=== PATIENT | female | born 1935 | race Caucasian/White ===

== ENCOUNTER 2018-01-20 09:00 | Outpatient (RCR) | payer MEDICARE, SELFPAY ==
[2017-12-30 16:08] VITALS: BP 117/49; PULSE 79; RESP 18; TEMP 36.8; BMI 33.8
--- NOTE | 2017-12-30 16:56 | PCM.WC.HP ---
(1) Pressure ulcer of coccygeal region, stage 2 Status: Acute Current Visit: Yes Code(s): L89.152 - Pressure ulcer of sacral region, stage 2 (2) CAD (coronary artery disease) Status: Chronic Current Visit: Yes Qualifiers: Coronary Disease-Associated Artery/Lesion type: [place] artery [place] vs. transplanted heart: [place] heart Code(s): I25.10 - Atherosclerotic heart disease of [place] coronary artery without angina pectoris (3) Lymphedema Status: Chronic Current Visit: No Code(s): I89.0 - Lymphedema, not elsewhere classified (4) Hypothyroidism Status: Chronic Current Visit: No Code(s): E03.9 - Hypothyroidism, unspecified (5) Diabetes mellitus Status: Chronic Current Visit: No Qualifiers: Diabetes mellitus type: type 2 Code(s): E11.9 - Type 2 diabetes mellitus without complications (6) Renal insufficiency Status: Chronic Current Visit: No Code(s): N28.9 - Disorder of kidney and ureter, unspecified (7) Gout Status: Chronic Current Visit: No Code(s): M10.9 - Gout, unspecified (8) Hyperlipidemia Status: Chronic Current Visit: No Code(s): E78.5 - Hyperlipidemia, unspecified (9) GERD (gastroesophageal reflux disease) Status: Chronic Current Visit: No Code(s): K21.9 - Gastro-esophageal reflux disease without esophagitis (10) Obesity (BMI 30.0-34.9) Status: Chronic Current Visit: No Code(s): E66.9 - Obesity, unspecified History of Present Illness Date of Service: 12/30/17 Chief Complaint: Stage II pressure ulceration of the coccygeal region History of Wound: This is an 82-year-old female who was recently hospitalized at [facility], and underwent left intramedullary rodding of a left hip fracture on December 08, 2017. Postoperatively, she developed a pressure ulceration of the coccyx, which was noted on December 15, 2017. The patient is now ambulatory, though requires the use of a walker. She sleeps on a flat mattress at night. Because of her recent surgery on the left hip, she is unable to lay on her left side in the left lateral decubitus position. Past Medical History Past Medical History: Chronic Problems CAD (coronary artery disease) (Chronic) Lymphedema (Chronic) Hypothyroidism (Chronic) Diabetes mellitus (Chronic) Renal insufficiency (Chronic) Gout (Chronic) Hyperlipidemia (Chronic) GERD (gastroesophageal reflux disease) (Chronic) Obesity (BMI 30.0-34.9) (Chronic) Past Medical History: The patient's history is negative for cerebrovascular accident, hypertension, and pulmonary disease. She has a history of coronary artery disease, for which she underwent coronary artery stenting in 2014. Suffers from lymphedema of the lower extremities. She has a history of hypothyroidism, diabetes mellitus, renal insufficiency, gout, hyperlipidemia, and gastroesophageal reflux disease. Surgical History: - - Patient underwent hysterectomy in 1969. Bladder suspension was performed in 1962. Patient is undergone rotator cuff surgery on the right twice. She is undergone lumbar surgery in 1983. She has had bilateral cataract surgery. Right inguinal hernia repair was performed in the past. She underwent left intramedullary rodding on December 08, 2017. Allergies/Adverse Reactions: Allergies cefuroxime [From Ceftin] Allergy (Verified 12/30/17 16:25) Rash codeine Allergy (Verified 12/30/17 16:25) Rash erythromycin base Allergy (Verified 12/30/17 16:25) Rash Penicillins Allergy (Verified 12/30/17 16:25) Rash Home Medications: Ambulatory Orders Medication Instructions Recorded Acetaminophen [Tylenol] 650 mg PO 5X/DAY 12/30/17 Aspirin [Adult Low Dose Aspirin EC] 81 mg PO DAILY 12/30/17 Atorvastatin Calcium [Lipitor] 10 mg PO QHS 12/30/17 Celecoxib [Celebrex] 200 mg PO DAILY PRN PRN 12/30/17 Cholecalciferol (Vitamin D3) 1,000 unit PO BID 12/30/17 [Vitamin D3] Colestipol Tablet [Colestid Tablet] 1 gm PO DAILY 12/30/17 Febuxostat [Uloric] 40 mg PO DAILY 12/30/17 Furosemide [Lasix] 40 mg PO DAILY 12/30/17 Insulin Glargine,Hum.rec.anlog 35 unit SQ DAILY 12/30/17 [Lantus] Insulin Lispro [Humalog Kwikpen] 10 - 15 unit SQ 4X/DAY 12/30/17 Insulin Lispro [Humalog] 40 unit SQ DAILY 12/30/17 Levothyroxine [Synthroid] 112 mcg PO DAILY 12/30/17 Metolazone [Zaroxolyn] 5 mg PO QODAY 12/30/17 Multivitamin/Iron/Folic Acid 1 each PO DAILY 12/30/17 [Centrum Adults Tablet] Nitroglycerin 0.4 mg SL PRN PRN 12/30/17 Oxycodone [Oxyir] 5 mg PO Q6H PRN PRN 12/30/17 Potassium Chloride [Klor-Con 10] 10 meq PO QODAY 12/30/17 Ranitidine [Zantac] 150 mg PO DAILY PRN 12/30/17 Sotalol HCl [Betapace AF (Beta 40 mg PO DAILY 12/30/17 Jim)] - Family History Paternal - - The patient's father at the age of 88 with a history of cerebrovascular accident. Patient's mother at age of 85 with a history of coronary artery disease and dementia. Social History: The patient lives alone. She denies the use of alcohol and tobacco products. She is a . She is a retired teacher. Lives: Alone Smoking Status: Never smoker Tobacco Use: Non-smoker Alcohol: None Drugs: None Review of Systems Constitutional: Denies: Chills, Fever, Weight Change Eyes: Denies: Pain, Vision Change HEENT: Denies: Difficulty Hearing, Difficulty Swallowing, Sinus Congestion Cardiovascular: Denies: Chest Pain, Palpitations Respiratory: Denies: Cough, Shortness of Breath Gastrointestinal: Denies: Diarrhea, Nausea, Vomiting Genitourinary: Denies: Dysuria, Hematuria Endocrine: Denies: Heat/ Cold Intolerance, Polydipsia, Polyuria Hematologic/ Lymphatic: Denies: Easy Bruising, Easy Bleeding - Physical Exam Vital Signs Temp Pulse Resp BP 98.2 F 79 18 117/49 L 12/30/17 16:08 12/30/17 16:08 12/30/17 16:08 12/30/17 16:08 General: Alert, Oriented x3, Cooperative, No apparent distress, Well developed, Well nourished HEENT: Atraumatic, PERRLA, EOMI, Normocephalic Oral: Moist Mucosa, No Gingival or Mucosal Lesions/ Ulcerations Neck: Supple, No JVD, Negative Carotid Bruits, Negative Hepatojugular Reflux, No Nodes, No Nuchal Rigidity, Trachea Midline Lungs: Clear to auscultation, Normal air movement, No rhonchi, No wheeze, No rales Cardiovascular: Regular rate, Regular Rhythm, Normal S1, Normal S2, No murmurs Abdomen: Bowel Sounds Present, Soft, Non Tender, Non-Distended Extremities: No clubbing, No cyanosis, No Calf Tenderness, - - Bilateral lymphedema is noted in the lower extremities. There are no open ulcerations or wounds. Skin: - - Ulceration is noted in the coccygeal region. Dimensions are documented elsewhere. This represents a stage II ulceration. The base of the ulceration is fibrotic. Wound Measurements and Assessment WC - Nurse 1 - General Ulcer Measurement Start: 12/30/17 16:08 Freq: Status: Active Protocol: Activity Type Activity Date Activity User E-Sign Co-Sign Detail Recorded Client Recorded Date Recorded By Document 12/30/17 16:08 [email or web address] 12/30/17 16:20 12/30/17 16:08 Wound Center Nurse 1 [Ulcer Assessment] #1 coccyx -Combined with other wound No -Current Size (cm) - Length 1.9 -Current Size (cm) - Width 0.8 -Current Size (cm) - Depth 0.2 -Total Square Cm 1.52 -Date of Last Picture (Recall this 12/30/17 field) -Photo Taken Yes -Epithelialization Small 1-33% -Tunneling No -Undermining/Tunneling No -Circular Undermining No -Classification - Thickness Full Thickness without Exposed Support Structure -Classification - Pressure Ulcer Stage 2 -Exudate Amt Small (1-33%) -Exudate Type Serosanguineous -Wound Margin Distinct, Outline Attached -Granulation Amt None Present (0 %) -Granulation Quality N/A -Slough/Fibrin Yes -Necrosis Amt Large (67-100%) -Necrotic Tissue Type Adherent Slough -Structure Exposed Fascia Fat Layer Exposed -Texture (Carol-wound Skin Appearance) Friable -Moisture (Carol-wound Skin Appearance No Abnormality ) -Color (Carol-wound Skin Appearance) Erythema -Temperature (Carol-wound Skin No Abnormality Appearance) (Pt Warm) -Tenderness on Palpation (Carol-wound No Skin Appearance) -Ulcer Cleansing Rinsed/ Irrigated with Saline -Foul Odor after Cleansing No -Anesthetic Used 5% Lidocaine Gel [Edema Assessment] -Lower Limb Edema Present No Neurological: Cranial nerves II-XII grossly intact, Neuro grossly intact Psych/Mental Status: Normal Affect, Appropriate, Alert and oriented to time, place, person, mood and affect Debridement Note Laterality: Not Applicable Type of Debridement: Excisional debridement Anesthesia Used: 4% Lidocaine Solution Depth: Down to and including healthy tissue, in the subcutaneous layer Percentage of wound debrided: 100 Instrument Used: 5mm curette Severity: Fat Layer Exposed Amount of bleeding with debridement: Mild Bleeding Controlled with: Compression and gauze Patient tolerated procedure well Assessment/Plan Active Problems Pressure ulcer of coccygeal region, stage 2 (Acute) CAD (coronary artery disease) (Chronic) Assessment: This is an 82-year-old female recently hospitalized for left intramedullary rodding secondary to a traumatic fracture. As result, she has developed a stage II pressure ulceration of the coccygeal region. Her other medical problems are documented above. Plan: Offloading measures are to be implemented. These measures have been discussed with the patient and her daughter, who is at the bedside. We have recommended a low air loss mattress, which may be difficult for the patient, as she is short, and it may preclude her from actually placing herself within her bed. And advised. Enhance nutrition has been recommended. Weekly mechanical debridements are anticipated. We are to initiate local care using collagenase Santyl applied topically on a daily basis. We are to request recent laboratory studies from [facility]. Return in 1 week for reassessment. The patient is not a smoker. Influenza vaccine was not administered today. Patient weighs 179 pounds. She stands 5 feet 1 inches tall. Her BMI is 33.8, which places her in a class II category. Weight loss has been recommended, and she has been advised to collaborate with her primary care physician in this regard.
[2018-01-06 09:05] VITALS: BP 146/62; PULSE 89; RESP 18; TEMP 35.8; BMI 33.8
--- NOTE | 2018-01-06 09:29 | HP.PCM_ITS ---
(1) Pressure ulcer of coccygeal region, stage 2 Status: Acute Current Visit: Yes Code(s): L89.152 - Pressure ulcer of sacral region, stage 2 (2) CAD (coronary artery disease) Status: Chronic Current Visit: Yes Qualifiers: Coronary Disease-Associated Artery/Lesion type: [place] artery [place] vs. transplanted heart: [place] heart Code(s): I25.10 - Atherosclerotic heart disease of [place] coronary artery without angina pectoris (3) Lymphedema Status: Chronic Current Visit: No Code(s): I89.0 - Lymphedema, not elsewhere classified (4) Hypothyroidism Status: Chronic Current Visit: No Code(s): E03.9 - Hypothyroidism, unspecified (5) Diabetes mellitus Status: Chronic Current Visit: No Qualifiers: Diabetes mellitus type: type 2 Code(s): E11.9 - Type 2 diabetes mellitus without complications (6) Renal insufficiency Status: Chronic Current Visit: No Code(s): N28.9 - Disorder of kidney and ureter, unspecified (7) Gout Status: Chronic Current Visit: No Code(s): M10.9 - Gout, unspecified (8) Hyperlipidemia Status: Chronic Current Visit: No Code(s): E78.5 - Hyperlipidemia, unspecified (9) GERD (gastroesophageal reflux disease) Status: Chronic Current Visit: No Code(s): K21.9 - Gastro-esophageal reflux disease without esophagitis (10) Obesity (BMI 30.0-34.9) Status: Chronic Current Visit: No Code(s): E66.9 - Obesity, unspecified History of Present Illness Date of Service: 01/06/18 Chief Complaint: Stage II pressure ulceration of the coccygeal region History of Wound: This is an 82-year-old female who was recently hospitalized at [facility], and underwent left intramedullary rodding of a left hip fracture on December 08, 2017. Postoperatively, she developed a pressure ulceration of the coccyx, which was noted on December 15, 2017. The patient is now ambulatory, though requires the use of a walker. She sleeps on a flat mattress at night. Because of her recent surgery on the left hip, she is unable to lay on her left side in the left lateral decubitus position. Past Medical History Past Medical History: Chronic Problems CAD (coronary artery disease) (Chronic) Lymphedema (Chronic) Hypothyroidism (Chronic) Diabetes mellitus (Chronic) Renal insufficiency (Chronic) Gout (Chronic) Hyperlipidemia (Chronic) GERD (gastroesophageal reflux disease) (Chronic) Obesity (BMI 30.0-34.9) (Chronic) Surgical History: - - Patient underwent hysterectomy in 1969. Bladder suspension was performed in 1962. Patient is undergone rotator cuff surgery on the right twice. She is undergone lumbar surgery in 1983. She has had bilateral cataract surgery. Right inguinal hernia repair was performed in the past. She underwent left intramedullary rodding on December 08, 2017. Allergies/Adverse Reactions: Allergies cefuroxime [From Ceftin] Allergy (Verified 12/30/17 16:25) Rash codeine Allergy (Verified 12/30/17 16:25) Rash erythromycin base Allergy (Verified 12/30/17 16:25) Rash Penicillins Allergy (Verified 12/30/17 16:25) Rash Home Medications: Ambulatory Orders Medication Instructions Recorded Acetaminophen [Tylenol] 650 mg PO 5X/DAY 12/30/17 Aspirin [Adult Low Dose Aspirin EC] 81 mg PO DAILY 12/30/17 Atorvastatin Calcium [Lipitor] 10 mg PO QHS 12/30/17 Celecoxib [Celebrex] 200 mg PO DAILY PRN PRN 12/30/17 Cholecalciferol (Vitamin D3) 1,000 unit PO BID 12/30/17 [Vitamin D3] Colestipol Tablet [Colestid Tablet] 1 gm PO DAILY 12/30/17 Febuxostat [Uloric] 40 mg PO DAILY 12/30/17 Furosemide [Lasix] 40 mg PO DAILY 12/30/17 Insulin Glargine,Hum.rec.anlog 35 unit SQ DAILY 12/30/17 [Lantus] Insulin Lispro [Humalog Kwikpen] 10 - 15 unit SQ 4X/DAY 12/30/17 Insulin Lispro [Humalog] 40 unit SQ DAILY 12/30/17 Levothyroxine [Synthroid] 112 mcg PO DAILY 12/30/17 Metolazone [Zaroxolyn] 5 mg PO QODAY 12/30/17 Multivitamin/Iron/Folic Acid 1 each PO DAILY 12/30/17 [Centrum Adults Tablet] Nitroglycerin 0.4 mg SL PRN PRN 12/30/17 Oxycodone [Oxyir] 5 mg PO Q6H PRN PRN 12/30/17 Potassium Chloride [Klor-Con 10] 10 meq PO QODAY 12/30/17 Ranitidine [Zantac] 150 mg PO DAILY PRN 12/30/17 Sotalol HCl [Betapace AF (Beta 40 mg PO DAILY 12/30/17 Jim)] - Family History Paternal - - The patient's father at the age of 88 with a history of cerebrovascular accident. Patient's mother at age of 85 with a history of coronary artery disease and dementia. Lives: Alone Smoking Status: Never smoker Tobacco Use: Non-smoker Alcohol: None Drugs: None Review of Systems Constitutional: Denies: Chills, Fever, Weight Change Eyes: Denies: Pain, Vision Change HEENT: Denies: Difficulty Hearing, Difficulty Swallowing, Sinus Congestion Cardiovascular: Denies: Chest Pain, Palpitations Respiratory: Denies: Cough, Shortness of Breath Gastrointestinal: Denies: Diarrhea, Nausea, Vomiting Genitourinary: Denies: Dysuria, Hematuria Endocrine: Denies: Heat/ Cold Intolerance, Polydipsia, Polyuria Hematologic/ Lymphatic: Denies: Easy Bruising, Easy Bleeding - Physical Exam Vital Signs Temp Pulse Resp BP 96.4 F L 89 18 146/62 H 01/06/18 09:05 01/06/18 09:05 01/06/18 09:05 01/06/18 09:05 General: Alert, Oriented x3, Cooperative, No apparent distress, Well developed, Well nourished HEENT: Atraumatic, PERRLA, EOMI, Normocephalic Oral: Moist Mucosa Neck: No JVD Lungs: Normal air movement Abdomen: Non-Distended, Obese Extremities: No clubbing, No cyanosis, No Calf Tenderness Skin: No rashes, - - The stage II coccygeal pressure ulceration is little changed. Dimensions are documented elsewhere. The base of the ulceration is fibrous. There is a moderate amount of bioburden. Wound Measurements and Assessment WC - Nurse 1 - General Ulcer Measurement Start: 12/30/17 16:08 Freq: Status: Active Protocol: Activity Type Activity Date Activity User E-Sign Co-Sign Detail Recorded Client Recorded Date Recorded By Document 01/06/18 09:05 CAREN [id number] 01/06/18 09:07 CAREN 01/06/18 09:05 Wound Center Nurse 1 [Ulcer Assessment] #1 coccyx -Combined with other wound No -Current Size (cm) - Length 1.5 -Current Size (cm) - Width 0.5 -Current Size (cm) - Depth 0.2 -Total Square Cm 0.75 -Photo Taken No -Epithelialization None Present -Tunneling No -Undermining/Tunneling No -Circular Undermining No -Exudate Amt Small (1-33%) -Exudate Type Serosanguineous -Wound Margin Flat & Intact -Granulation Amt None Present (0 %) -Slough/Fibrin Yes -Necrosis Amt Large (67-100%) -Necrotic Tissue Type Adherent Slough -Structure Exposed N/A -Texture (Carol-wound Skin Appearance) Assessed -Moisture (Carol-wound Skin Appearance Assessed ) Dry/Scaly -Color (Carol-wound Skin Appearance) Assessed -Temperature (Carol-wound Skin No Abnormality Appearance) (Pt Warm) -Tenderness on Palpation (Carol-wound No Skin Appearance) -Ulcer Cleansing Rinsed/ Irrigated with Saline -Foul Odor after Cleansing No -Anesthetic Used 4% Lidocaine Solution [Edema Assessment] -Lower Limb Edema Present NA WC - Nurse 2 - General Ulcer CM Notes Start: 12/30/17 16:08 Freq: Status: Active Protocol: Activity Type Activity Date Activity User E-Sign Co-Sign Detail Recorded Client Recorded Date Recorded By Document 01/06/18 09:15 MANI [id number] 01/06/18 09:17 MANI 01/06/18 09:15 Wound Center Nurse 2 [Procedure/Treatment] #1 coccyx -Time 09:15 -Correct Patient Yes -Correct Side, Site, Position Yes -Correct Procedure Yes -Procedure Performed Yes -Type of Procedure Debridement -Clinical Debridement Subcutaneous -Post Debridement Size (cm) - Length 1.6 -Post Debridement Size (cm) - Width 0.6 -Post Debridement Size (cm) - Depth 0.2 -Total Square Cm 0.96 -Wound/Ulcer Outcome Not Healed -Ulcer Cleansing Rinsed/ Irrigated with Saline -Foul Odor after Cleansing No -Bioengineered Tissue No -Bleeding Controlled with Pressure -Treatment Response Procedure Tolerated Well [See Physician Procedure note for Specifics] Pain Scale: 0-10 Numeric [Pain] -Is Patient Pain Free? Yes Neurological: Cranial nerves II-XII grossly intact, Neuro grossly intact Psych/Mental Status: Normal Affect, Appropriate, Alert and oriented to time, place, person, mood and affect Debridement Note Post-Debridement Measurements/Treatment WC - Nurse 2 - General Ulcer CM Notes Start: 12/30/17 16:08 Freq: Status: Active Protocol: Activity Type Activity Date Activity User E-Sign Co-Sign Detail Recorded Client Recorded Date Recorded By Document 12/30/17 16:40 [id number] 12/30/17 17:16 Document 01/06/18 09:15 [id number] 01/06/18 09:17 JS 12/30/17 01/06/18 16:40 09:15 Wound Center Nurse 2 #1 coccyx -Time 16:40 09:15 -Correct Patient Yes Yes -Correct Side, Site, Position Yes Yes -Correct Procedure Yes Yes -Procedure Performed Yes Yes -Type of Procedure Debridement Debridement -Clinical Debridement Subcutaneous Subcutaneous -Post Debridement Size (cm) - Length 2.0 1.6 -Post Debridement Size (cm) - Width 2.0 0.6 -Post Debridement Size (cm) - Depth 0.1 0.2 -Total Square Cm 4.00 0.96 -Wound/Ulcer Outcome Not Healed Not Healed -Ulcer Cleansing Rinsed/ Rinsed/ Irrigated with Irrigated with Saline Saline -Foul Odor after Cleansing No No -Bioengineered Tissue No No -Topical Lidocaine (%) 4 -Lidocaine (ml) 5 -Bleeding Controlled with NA Pressure -Treatment Response Procedure Procedure Tolerated Well Tolerated Well Pain Scale: 0-10 Numeric Is Patient Pain Free? Yes Yes Laterality: Not Applicable - Coccygeal pressure ulceration Type of Debridement: Excisional debridement Anesthesia Used: 4% Lidocaine Solution Depth: Down to and including healthy tissue, in the subcutaneous layer Percentage of wound debrided: 100 Instrument Used: 5mm curette Severity: Fat Layer Exposed Amount of bleeding with debridement: Mild Bleeding Controlled with: Compression and gauze Patient tolerated procedure well Assessment/Plan Active Problems Pressure ulcer of coccygeal region, stage 2 (Acute) CAD (coronary artery disease) (Chronic) Assessment: This is an 82-year-old female recently hospitalized for left intramedullary rodding secondary to a traumatic fracture. As result, she has developed a stage II pressure ulceration of the coccygeal region. Her other medical problems are documented above. There has been little change in the last week. We have obtained recent laboratory results from [facility], dated 12/20/2017. Results were as follows: White blood count 8.6, hemoglobin 10.7, hematocrit 32.2, platelets 336,000, glucose 105, sodium 140, potassium 3.2, chloride 97, BUN 54.3, creatinine 1.8. Plan: Offloading measures are to be continued. These measures have been discussed with the patient and her daughter, who is at the bedside. We have recommended a low air loss mattress, which may be difficult for the patient, as she is short, and it may preclude her from actually placing herself within her bed. Enhanced nutrition and protein intake has been recommended. Optimization of the patient's diabetes has been recommended. Weekly mechanical debridements are anticipated. We are to continue local care using collagenase Santyl applied topically on a daily basis. The patient and her daughter have been advised to assure that gauze contacts the wound bed as much as possible, given that the ulceration is well within the cleft of her buttocks. She will return in 1 week for reassessment. The patient is not a smoker. Influenza vaccine was not administered today. Patient weighs 179 pounds. She stands 5 feet 1 inches tall. Her BMI is 33.8, which places her in a class II category. Weight loss has been recommended, and she has been advised to collaborate with her primary care physician in this regard.
[2018-01-13 08:43] VITALS: BP 136/60; PULSE 75; RESP 16; TEMP 35.7; BMI 33.8
--- NOTE | 2018-01-13 08:55 | PCM.WC.HP ---
(1) Pressure ulcer of coccygeal region, stage 2 Status: Acute Current Visit: Yes Code(s): L89.152 - Pressure ulcer of sacral region, stage 2 (2) CAD (coronary artery disease) Status: Chronic Current Visit: Yes Qualifiers: Coronary Disease-Associated Artery/Lesion type: [place] artery [place] vs. transplanted heart: [place] heart Code(s): I25.10 - Atherosclerotic heart disease of [place] coronary artery without angina pectoris (3) Lymphedema Status: Chronic Current Visit: No Code(s): I89.0 - Lymphedema, not elsewhere classified (4) Hypothyroidism Status: Chronic Current Visit: No Code(s): E03.9 - Hypothyroidism, unspecified (5) Diabetes mellitus Status: Chronic Current Visit: No Qualifiers: Diabetes mellitus type: type 2 Code(s): E11.9 - Type 2 diabetes mellitus without complications (6) Renal insufficiency Status: Chronic Current Visit: No Code(s): N28.9 - Disorder of kidney and ureter, unspecified (7) Gout Status: Chronic Current Visit: No Code(s): M10.9 - Gout, unspecified (8) Hyperlipidemia Status: Chronic Current Visit: No Code(s): E78.5 - Hyperlipidemia, unspecified (9) GERD (gastroesophageal reflux disease) Status: Chronic Current Visit: No Code(s): K21.9 - Gastro-esophageal reflux disease without esophagitis (10) Obesity (BMI 30.0-34.9) Status: Chronic Current Visit: No Code(s): E66.9 - Obesity, unspecified History of Present Illness Date of Service: 01/13/18 Chief Complaint: Stage II pressure ulceration of the coccygeal region History of Wound: This is an 82-year-old female who was recently hospitalized at [facility], and underwent left intramedullary rodding of a left hip fracture on December 08, 2017. Postoperatively, she developed a pressure ulceration of the coccyx, which was noted on December 15, 2017. The patient is now ambulatory, though requires the use of a walker. She sleeps on a flat mattress at night. Because of her recent surgery on the left hip, she is unable to lay on her left side in the left lateral decubitus position. Past Medical History Past Medical History: Chronic Problems CAD (coronary artery disease) (Chronic) Lymphedema (Chronic) Hypothyroidism (Chronic) Diabetes mellitus (Chronic) Renal insufficiency (Chronic) Gout (Chronic) Hyperlipidemia (Chronic) GERD (gastroesophageal reflux disease) (Chronic) Obesity (BMI 30.0-34.9) (Chronic) Surgical History: - - Patient underwent hysterectomy in 1969. Bladder suspension was performed in 1962. Patient is undergone rotator cuff surgery on the right twice. She is undergone lumbar surgery in 1983. She has had bilateral cataract surgery. Right inguinal hernia repair was performed in the past. She underwent left intramedullary rodding on December 08, 2017. Allergies/Adverse Reactions: Allergies cefuroxime [From Ceftin] Allergy (Verified 12/30/17 16:25) Rash codeine Allergy (Verified 12/30/17 16:25) Rash erythromycin base Allergy (Verified 12/30/17 16:25) Rash Penicillins Allergy (Verified 12/30/17 16:25) Rash Home Medications: Ambulatory Orders Medication Instructions Recorded Acetaminophen [Tylenol] 650 mg PO 5X/DAY 12/30/17 Aspirin [Adult Low Dose Aspirin EC] 81 mg PO DAILY 12/30/17 Atorvastatin Calcium [Lipitor] 10 mg PO QHS 12/30/17 Celecoxib [Celebrex] 200 mg PO DAILY PRN PRN 12/30/17 Cholecalciferol (Vitamin D3) 1,000 unit PO BID 12/30/17 [Vitamin D3] Colestipol Tablet [Colestid Tablet] 1 gm PO DAILY 12/30/17 Febuxostat [Uloric] 40 mg PO DAILY 12/30/17 Furosemide [Lasix] 40 mg PO DAILY 12/30/17 Insulin Glargine,Hum.rec.anlog 35 unit SQ DAILY 12/30/17 [Lantus] Insulin Lispro [Humalog Kwikpen] 10 - 15 unit SQ 4X/DAY 12/30/17 Insulin Lispro [Humalog] 40 unit SQ DAILY 12/30/17 Levothyroxine [Synthroid] 112 mcg PO DAILY 12/30/17 Metolazone [Zaroxolyn] 5 mg PO QODAY 12/30/17 Multivitamin/Iron/Folic Acid 1 each PO DAILY 12/30/17 [Centrum Adults Tablet] Nitroglycerin 0.4 mg SL PRN PRN 12/30/17 Oxycodone [Oxyir] 5 mg PO Q6H PRN PRN 12/30/17 Potassium Chloride [Klor-Con 10] 10 meq PO QODAY 12/30/17 Ranitidine [Zantac] 150 mg PO DAILY PRN 12/30/17 Sotalol HCl [Betapace AF (Beta 40 mg PO DAILY 12/30/17 Jim)] - Family History Paternal - - The patient's father at the age of 88 with a history of cerebrovascular accident. Patient's mother at age of 85 with a history of coronary artery disease and dementia. Lives: Alone Smoking Status: Never smoker Tobacco Use: Non-smoker Alcohol: None Drugs: None Review of Systems Constitutional: Denies: Chills, Fever, Weight Change Eyes: Denies: Pain, Vision Change HEENT: Denies: Difficulty Hearing, Difficulty Swallowing, Sinus Congestion Cardiovascular: Denies: Chest Pain, Palpitations Respiratory: Denies: Cough, Shortness of Breath Gastrointestinal: Denies: Diarrhea, Nausea, Vomiting Genitourinary: Denies: Dysuria, Hematuria Endocrine: Denies: Heat/ Cold Intolerance, Polydipsia, Polyuria Hematologic/ Lymphatic: Denies: Easy Bruising, Easy Bleeding - Physical Exam Vital Signs Temp Pulse Resp BP 96.2 F L 75 16 136/60 H 01/13/18 08:43 01/13/18 08:43 01/13/18 08:43 01/13/18 08:43 General: Alert, Oriented x3, Cooperative, No apparent distress, Well developed, Well nourished HEENT: Atraumatic, PERRLA, EOMI, Normocephalic Oral: Moist Mucosa Neck: No JVD Lungs: Normal air movement Abdomen: Non-Distended Extremities: No clubbing, No cyanosis, No Calf Tenderness Skin: No rashes, - - The ulceration in the coccygeal region is slightly smaller in size. Dimensions are documented elsewhere. There is a decrease in the bioburden and the fibrous material at the base of the ulceration. There are increasing areas of healthy granulation tissue. There is no sign of infection or cellulitis. Wound Measurements and Assessment WC - Nurse 1 - General Ulcer Measurement Start: 12/30/17 16:08 Freq: Status: Active Protocol: Activity Type Activity Date Activity User E-Sign Co-Sign Detail Recorded Client Recorded Date Recorded By Document 01/13/18 08:43 DV [id number] 01/13/18 08:46 DV 01/13/18 08:43 Wound Center Nurse 1 [Ulcer Assessment] #1 coccyx -Combined with other wound No -Current Size (cm) - Length 1.1 -Current Size (cm) - Width 0.3 -Current Size (cm) - Depth 0.2 -Total Square Cm 0.33 -Photo Taken No -Epithelialization Small 1-33% -Tunneling No -Undermining/Tunneling No -Circular Undermining No -Classification - Thickness Full Thickness without Exposed Support Structure -Exudate Amt Small (1-33%) -Exudate Type Serosanguineous -Wound Margin Distinct, Outline Attached -Granulation Amt None Present (0 %) -Granulation Quality N/A -Slough/Fibrin Yes -Necrosis Amt Medium (34-66%) -Necrotic Tissue Type Adherent Slough -Structure Exposed None/Limited to Skin Breakdown -Texture (Carol-wound Skin Appearance) Assessed -Moisture (Carol-wound Skin Appearance Assessed ) -Color (Carol-wound Skin Appearance) Assessed -Temperature (Carol-wound Skin No Abnormality Appearance) (Pt Warm) -Tenderness on Palpation (Carol-wound No Skin Appearance) -Ulcer Cleansing Rinsed/ Irrigated with Saline -Foul Odor after Cleansing No -Anesthetic Used 4% Lidocaine Solution Musculoskeletal: No Muscle Wasting Neurological: Cranial nerves II-XII grossly intact, Neuro grossly intact Psych/Mental Status: Normal Affect, Appropriate, Alert and oriented to time, place, person, mood and affect Debridement Note Post-Debridement Measurements/Treatment WC - Nurse 2 - General Ulcer CM Notes Start: 12/30/17 16:08 Freq: Status: Active Protocol: Activity Type Activity Date Activity User E-Sign Co-Sign Detail Recorded Client Recorded Date Recorded By Document 12/30/17 16:40 [id number] 12/30/17 17:16 JS Document 01/06/18 09:15 [id number] 01/06/18 09:17 JS 12/30/17 01/06/18 16:40 09:15 Wound Center Nurse 2 #1 coccyx -Time 16:40 09:15 -Correct Patient Yes Yes -Correct Side, Site, Position Yes Yes -Correct Procedure Yes Yes -Procedure Performed Yes Yes -Type of Procedure Debridement Debridement -Clinical Debridement Subcutaneous Subcutaneous -Post Debridement Size (cm) - Length 2.0 1.6 -Post Debridement Size (cm) - Width 2.0 0.6 -Post Debridement Size (cm) - Depth 0.1 0.2 -Total Square Cm 4.00 0.96 -Wound/Ulcer Outcome Not Healed Not Healed -Ulcer Cleansing Rinsed/ Rinsed/ Irrigated with Irrigated with Saline Saline -Foul Odor after Cleansing No No -Bioengineered Tissue No No -Topical Lidocaine (%) 4 -Lidocaine (ml) 5 -Bleeding Controlled with NA Pressure -Treatment Response Procedure Procedure Tolerated Well Tolerated Well Pain Scale: 0-10 Numeric Is Patient Pain Free? Yes Yes Laterality: Not Applicable - Coccyx, midline Type of Debridement: Excisional debridement Anesthesia Used: 4% Lidocaine Solution Depth: Down to and including healthy tissue, in the subcutaneous layer Percentage of wound debrided: 100 Instrument Used: 3mm curette Severity: Fat Layer Exposed Amount of bleeding with debridement: Mild Bleeding Controlled with: Compression and gauze Patient tolerated procedure well Assessment/Plan Active Problems Pressure ulcer of coccygeal region, stage 2 (Acute) CAD (coronary artery disease) (Chronic) Assessment: This is an 82-year-old female recently hospitalized for left intramedullary rodding secondary to a traumatic fracture. As result, she has developed a stage II pressure ulceration of the coccygeal region. Her other medical problems are documented above. There has been slight decrease in the size of the coccygeal ulceration, with increasing areas of pink healthy granulation tissue. We have obtained recent laboratory results from [facility], dated 12/20/2017. Results were as follows: White blood count 8.6, hemoglobin 10.7, hematocrit 32.2, platelets 336,000, glucose 105, sodium 140, potassium 3.2, chloride 97, BUN 54.3, creatinine 1.8. Plan: Offloading measures are to be continued. These measures have been discussed with the patient and her daughter, who is at the bedside. We have recommended a low air loss mattress, which may be difficult for the patient, as she is short, and it may preclude her from actually placing herself within her bed. Enhanced nutrition and protein intake has been recommended. Optimization of the patient's diabetes has been recommended. Weekly mechanical debridements are anticipated. We are to continue local care using collagenase Santyl applied topically on a daily basis. The patient and her daughter have been advised to assure that gauze contacts the wound bed as much as possible, given that the ulceration is well within the cleft of her buttocks. She will return in 1 week for reassessment. The patient is not a smoker. Influenza vaccine was not administered today. Patient weighs 179 pounds. She stands 5 feet 1 inches tall. Her BMI is 33.8, which places her in a class II category. Weight loss has been recommended, and she has been advised to collaborate with her primary care physician in this regard.
[2018-01-20 08:58] VITALS: BP 137/67; PULSE 84; RESP 18; BMI 33.8
--- NOTE | 2018-01-20 09:17 | PCM.WC.HP ---
(1) Pressure ulcer of coccygeal region, stage 2 Status: Acute Current Visit: Yes Code(s): L89.152 - Pressure ulcer of sacral region, stage 2 (2) CAD (coronary artery disease) Status: Chronic Current Visit: Yes Qualifiers: Coronary Disease-Associated Artery/Lesion type: [place] artery [place] vs. transplanted heart: [place] heart Code(s): I25.10 - Atherosclerotic heart disease of [place] coronary artery without angina pectoris (3) Lymphedema Status: Chronic Current Visit: No Code(s): I89.0 - Lymphedema, not elsewhere classified (4) Hypothyroidism Status: Chronic Current Visit: No Code(s): E03.9 - Hypothyroidism, unspecified (5) Diabetes mellitus Status: Chronic Current Visit: No Qualifiers: Diabetes mellitus type: type 2 Code(s): E11.9 - Type 2 diabetes mellitus without complications (6) Renal insufficiency Status: Chronic Current Visit: No Code(s): N28.9 - Disorder of kidney and ureter, unspecified (7) Gout Status: Chronic Current Visit: No Code(s): M10.9 - Gout, unspecified (8) Hyperlipidemia Status: Chronic Current Visit: No Code(s): E78.5 - Hyperlipidemia, unspecified (9) GERD (gastroesophageal reflux disease) Status: Chronic Current Visit: No Code(s): K21.9 - Gastro-esophageal reflux disease without esophagitis (10) Obesity (BMI 30.0-34.9) Status: Chronic Current Visit: No Code(s): E66.9 - Obesity, unspecified History of Present Illness Date of Service: 01/20/18 Chief Complaint: Stage II pressure ulceration of the coccygeal region History of Wound: This is an 82-year-old female who was recently hospitalized at [facility], and underwent left intramedullary rodding of a left hip fracture on December 08, 2017. Postoperatively, she developed a pressure ulceration of the coccyx, which was noted on December 15, 2017. The patient is now ambulatory, though requires the use of a walker. She sleeps on a flat mattress at night. Because of her recent surgery on the left hip, she is unable to lay on her left side in the left lateral decubitus position. Past Medical History Past Medical History: Chronic Problems CAD (coronary artery disease) (Chronic) Lymphedema (Chronic) Hypothyroidism (Chronic) Diabetes mellitus (Chronic) Renal insufficiency (Chronic) Gout (Chronic) Hyperlipidemia (Chronic) GERD (gastroesophageal reflux disease) (Chronic) Obesity (BMI 30.0-34.9) (Chronic) Surgical History: - - Patient underwent hysterectomy in 1969. Bladder suspension was performed in 1962. Patient is undergone rotator cuff surgery on the right twice. She is undergone lumbar surgery in 1983. She has had bilateral cataract surgery. Right inguinal hernia repair was performed in the past. She underwent left intramedullary rodding on December 08, 2017. Allergies/Adverse Reactions: Allergies cefuroxime [From Ceftin] Allergy (Verified 12/30/17 16:25) Rash codeine Allergy (Verified 12/30/17 16:25) Rash erythromycin base Allergy (Verified 12/30/17 16:25) Rash Penicillins Allergy (Verified 12/30/17 16:25) Rash Home Medications: Ambulatory Orders Medication Instructions Recorded Acetaminophen [Tylenol] 650 mg PO 5X/DAY 12/30/17 Aspirin [Adult Low Dose Aspirin EC] 81 mg PO DAILY 12/30/17 Atorvastatin Calcium [Lipitor] 10 mg PO QHS 12/30/17 Celecoxib [Celebrex] 200 mg PO DAILY PRN PRN 12/30/17 Cholecalciferol (Vitamin D3) 1,000 unit PO BID 12/30/17 [Vitamin D3] Colestipol Tablet [Colestid Tablet] 1 gm PO DAILY 12/30/17 Febuxostat [Uloric] 40 mg PO DAILY 12/30/17 Furosemide [Lasix] 40 mg PO DAILY 12/30/17 Insulin Glargine,Hum.rec.anlog 35 unit SQ DAILY 12/30/17 [Lantus] Insulin Lispro [Humalog Kwikpen] 10 - 15 unit SQ 4X/DAY 12/30/17 Insulin Lispro [Humalog] 40 unit SQ DAILY 12/30/17 Levothyroxine [Synthroid] 112 mcg PO DAILY 12/30/17 Metolazone [Zaroxolyn] 5 mg PO QODAY 12/30/17 Multivitamin/Iron/Folic Acid 1 each PO DAILY 12/30/17 [Centrum Adults Tablet] Nitroglycerin 0.4 mg SL PRN PRN 12/30/17 Oxycodone [Oxyir] 5 mg PO Q6H PRN PRN 12/30/17 Potassium Chloride [Klor-Con 10] 10 meq PO QODAY 12/30/17 Ranitidine [Zantac] 150 mg PO DAILY PRN 12/30/17 Sotalol HCl [Betapace AF (Beta 40 mg PO DAILY 12/30/17 Jim)] - Family History Paternal - - The patient's father at the age of 88 with a history of cerebrovascular accident. Patient's mother at age of 85 with a history of coronary artery disease and dementia. Lives: Alone Smoking Status: Never smoker Tobacco Use: Non-smoker Alcohol: None Drugs: None Review of Systems Constitutional: Denies: Chills, Fever, Weight Change Eyes: Denies: Pain, Vision Change HEENT: Denies: Difficulty Hearing, Difficulty Swallowing, Sinus Congestion Cardiovascular: Denies: Chest Pain, Palpitations Respiratory: Denies: Cough, Shortness of Breath Gastrointestinal: Denies: Diarrhea, Nausea, Vomiting Genitourinary: Denies: Dysuria, Hematuria Endocrine: Denies: Heat/ Cold Intolerance, Polydipsia, Polyuria Hematologic/ Lymphatic: Denies: Easy Bruising, Easy Bleeding - Physical Exam Vital Signs Temp Pulse Resp BP 96.2 F L 84 18 137/67 H 01/13/18 08:43 01/20/18 08:58 01/20/18 08:58 01/20/18 08:58 General: Alert, Oriented x3, Cooperative, No apparent distress, Well developed, Well nourished, - - The patient is obese HEENT: Atraumatic, PERRLA, EOMI, Normocephalic Oral: Moist Mucosa Neck: No JVD Lungs: Normal air movement Abdomen: Non-Distended Extremities: No clubbing, No cyanosis, No edema, No Calf Tenderness Skin: - - The sacrococcygeal pressure ulceration is improved. It is smaller in size. Dimensions are documented elsewhere. There is no sign of infection or cellulitis. There is a moderate amount of bioburden present at the surface of the ulceration, which was easily removed at the time of excisional debridement. Wound Measurements and Assessment WC - Nurse 1 - General Ulcer Measurement Start: 12/30/17 16:08 Freq: Status: Active Protocol: Activity Type Activity Date Activity User E-Sign Co-Sign Detail Recorded Client Recorded Date Recorded By Document 01/20/18 08:58 DV [id number] 01/20/18 09:02 01/20/18 08:58 Wound Center Nurse 1 [Ulcer Assessment] #1 coccyx -Combined with other wound No -Current Size (cm) - Length 1.2 -Current Size (cm) - Width 0.3 -Current Size (cm) - Depth 0.1 -Total Square Cm 0.36 -Photo Taken No -Epithelialization Small 1-33% -Tunneling No -Undermining/Tunneling No -Circular Undermining No -Classification - Thickness Partial Thickness -Exudate Amt Small (1-33%) -Exudate Type Serous -Wound Margin Distinct, Outline Attached -Granulation Amt None Present (0 %) -Granulation Quality N/A -Slough/Fibrin Yes -Necrosis Amt Large (67-100%) -Necrotic Tissue Type Adherent Slough -Structure Exposed None/Limited to Skin Breakdown -Texture (Carol-wound Skin Appearance) Assessed Scarring -Moisture (Carol-wound Skin Appearance Assessed ) Weeping -Color (Carol-wound Skin Appearance) Assessed Erythema -Temperature (Carol-wound Skin No Abnormality Appearance) (Pt Warm) -Ulcer Cleansing Rinsed/ Irrigated with Saline -Foul Odor after Cleansing No -Anesthetic Used 5% Lidocaine Gel WC - Nurse 2 - General Ulcer CM Notes Start: 12/30/17 16:08 Freq: Status: Active Protocol: Activity Type Activity Date Activity User E-Sign Co-Sign Detail Recorded Client Recorded Date Recorded By Document 01/20/18 09:12 [id number] 01/20/18 09:13 01/20/18 09:12 Wound Center Nurse 2 [Procedure/Treatment] -Time 09:12 -Correct Patient Yes -Correct Side, Site, Position Yes -Correct Procedure Yes -Procedure Performed Yes -Type of Procedure Debridement -Clinical Debridement Subcutaneous -Post Debridement Size (cm) - Length 1.5 -Post Debridement Size (cm) - Width 0.3 -Post Debridement Size (cm) - Depth 0.2 -Total Square Cm 0.45 -Wound/Ulcer Outcome Not Healed -Ulcer Cleansing Rinsed/ Irrigated with Saline -Foul Odor after Cleansing No -Bioengineered Tissue No -Bleeding Controlled with Pressure -Treatment Response Procedure Tolerated Well [See Physician Procedure note for Specifics] Pain Scale: 0-10 Numeric [Pain] -Is Patient Pain Free? Yes Neurological: Cranial nerves II-XII grossly intact, Neuro grossly intact Psych/Mental Status: Normal Affect, Appropriate, Alert and oriented to time, place, person, mood and affect Debridement Note Post-Debridement Measurements/Treatment WC - Nurse 2 - General Ulcer CM Notes Start: 12/30/17 16:08 Freq: Status: Active Protocol: Activity Type Activity Date Activity User E-Sign Co-Sign Detail Recorded Client Recorded Date Recorded By Document 12/30/17 16:40 [id number] 12/30/17 17:16 JS Document 01/06/18 09:15 JS [id number] 01/06/18 09:17 JS Document 01/20/18 09:12 [id number] 01/20/18 09:13 JF 12/30/17 01/06/18 01/20/18 16:40 09:15 09:12 Wound Center Nurse 2 #1 coccyx -Time 16:40 09:15 09:12 -Correct Patient Yes Yes Yes -Correct Side, Site, Position Yes Yes Yes -Correct Procedure Yes Yes Yes -Procedure Performed Yes Yes Yes -Type of Procedure Debridement Debridement Debridement -Clinical Debridement Subcutaneous Subcutaneous Subcutaneous -Post Debridement Size (cm) - Length 2.0 1.6 1.5 -Post Debridement Size (cm) - Width 2.0 0.6 0.3 -Post Debridement Size (cm) - Depth 0.1 0.2 0.2 -Total Square Cm 4.00 0.96 0.45 -Wound/Ulcer Outcome Not Healed Not Healed Not Healed -Ulcer Cleansing Rinsed/ Rinsed/ Rinsed/ Irrigated with Irrigated with Irrigated with Saline Saline Saline -Foul Odor after Cleansing No No No -Bioengineered Tissue No No No -Topical Lidocaine (%) 4 -Lidocaine (ml) 5 -Bleeding Controlled with NA Pressure Pressure -Treatment Response Procedure Procedure Procedure Tolerated Well Tolerated Well Tolerated Well Pain Scale: 0-10 Numeric Is Patient Pain Free? Yes Yes Yes Laterality: Not Applicable - Coccygeal pressure ulceration Type of Debridement: Excisional debridement Anesthesia Used: 4% Lidocaine Solution Depth: Down to and including healthy tissue, in the subcutaneous layer Percentage of wound debrided: 100 Instrument Used: 5mm curette Severity: Fat Layer Exposed Amount of bleeding with debridement: Mild Bleeding Controlled with: Compression and gauze Patient tolerated procedure well Assessment/Plan Active Problems Pressure ulcer of coccygeal region, stage 2 (Acute) CAD (coronary artery disease) (Chronic) Assessment: This is an 82-year-old female recently hospitalized for left intramedullary rodding secondary to a traumatic fracture. As result, she has developed a stage II pressure ulceration of the coccygeal region. Her other medical problems are documented above. There has been slight decrease in the size of the coccygeal ulceration, with increasing areas of pink healthy granulation tissue. We have obtained recent laboratory results from [facility], dated 12/20/2017. Results were as follows: White blood count 8.6, hemoglobin 10.7, hematocrit 32.2, platelets 336,000, glucose 105, sodium 140, potassium 3.2, chloride 97, BUN 54.3, creatinine 1.8. Plan: Offloading measures are to be continued. These measures have been discussed with the patient and her daughter, who is at the bedside. We have recommended a low air loss mattress, which may be difficult for the patient, as she is short, and it may preclude her from actually placing herself within her bed. Enhanced nutrition and protein intake has been recommended. The patient is taking nutritional supplements. Optimization of the patient's diabetes has been recommended. Weekly mechanical debridements have been implemented, and are anticipated to continue. We are to continue local care using collagenase Santyl applied topically on a daily basis. The patient and her daughter have been advised to assure that gauze contacts the wound bed as much as possible, given that the ulceration is well within the cleft of her buttocks. She will return in 1 week for reassessment. The patient is not a smoker. Influenza vaccine was not administered today. Patient weighs 179 pounds. She stands 5 feet 1 inches tall. Her BMI is 33.8, which places her in a class II category. Weight loss has been recommended, and she has been advised to collaborate with her primary care physician in this regard.
--- NOTE | 2018-01-20 09:22 | HP.PCM_ITS ---
(1) Pressure ulcer of coccygeal region, stage 2 Status: Acute Current Visit: Yes Code(s): L89.152 - Pressure ulcer of sacral region, stage 2 (2) CAD (coronary artery disease) Status: Chronic Current Visit: Yes Qualifiers: Coronary Disease-Associated Artery/Lesion type: [place] artery [place] vs. transplanted heart: [place] heart Code(s): I25.10 - Atherosclerotic heart disease of [place] coronary artery without angina pectoris (3) Lymphedema Status: Chronic Current Visit: No Code(s): I89.0 - Lymphedema, not elsewhere classified (4) Hypothyroidism Status: Chronic Current Visit: No Code(s): E03.9 - Hypothyroidism, unspecified (5) Diabetes mellitus Status: Chronic Current Visit: No Qualifiers: Diabetes mellitus type: type 2 Code(s): E11.9 - Type 2 diabetes mellitus without complications (6) Renal insufficiency Status: Chronic Current Visit: No Code(s): N28.9 - Disorder of kidney and ureter, unspecified (7) Gout Status: Chronic Current Visit: No Code(s): M10.9 - Gout, unspecified (8) Hyperlipidemia Status: Chronic Current Visit: No Code(s): E78.5 - Hyperlipidemia, unspecified (9) GERD (gastroesophageal reflux disease) Status: Chronic Current Visit: No Code(s): K21.9 - Gastro-esophageal reflux disease without esophagitis (10) Obesity (BMI 30.0-34.9) Status: Chronic Current Visit: No Code(s): E66.9 - Obesity, unspecified History of Present Illness Date of Service: 01/20/18 Chief Complaint: Stage II pressure ulceration of the coccygeal region History of Wound: This is an 82-year-old female who was recently hospitalized at [facility], and underwent left intramedullary rodding of a left hip fracture on December 08, 2017. Postoperatively, she developed a pressure ulceration of the coccyx, which was noted on December 15, 2017. The patient is now ambulatory, though requires the use of a walker. She sleeps on a flat mattress at night. Because of her recent surgery on the left hip, she is unable to lay on her left side in the left lateral decubitus position. Past Medical History Past Medical History: Chronic Problems CAD (coronary artery disease) (Chronic) Lymphedema (Chronic) Hypothyroidism (Chronic) Diabetes mellitus (Chronic) Renal insufficiency (Chronic) Gout (Chronic) Hyperlipidemia (Chronic) GERD (gastroesophageal reflux disease) (Chronic) Obesity (BMI 30.0-34.9) (Chronic) Surgical History: - - Patient underwent hysterectomy in 1969. Bladder suspension was performed in 1962. Patient is undergone rotator cuff surgery on the right twice. She is undergone lumbar surgery in 1983. She has had bilateral cataract surgery. Right inguinal hernia repair was performed in the past. She underwent left intramedullary rodding on December 08, 2017. Allergies/Adverse Reactions: Allergies cefuroxime [From Ceftin] Allergy (Verified 12/30/17 16:25) Rash codeine Allergy (Verified 12/30/17 16:25) Rash erythromycin base Allergy (Verified 12/30/17 16:25) Rash Penicillins Allergy (Verified 12/30/17 16:25) Rash Home Medications: Ambulatory Orders Medication Instructions Recorded Acetaminophen [Tylenol] 650 mg PO 5X/DAY 12/30/17 Aspirin [Adult Low Dose Aspirin EC] 81 mg PO DAILY 12/30/17 Atorvastatin Calcium [Lipitor] 10 mg PO QHS 12/30/17 Celecoxib [Celebrex] 200 mg PO DAILY PRN PRN 12/30/17 Cholecalciferol (Vitamin D3) 1,000 unit PO BID 12/30/17 [Vitamin D3] Colestipol Tablet [Colestid Tablet] 1 gm PO DAILY 12/30/17 Febuxostat [Uloric] 40 mg PO DAILY 12/30/17 Furosemide [Lasix] 40 mg PO DAILY 12/30/17 Insulin Glargine,Hum.rec.anlog 35 unit SQ DAILY 12/30/17 [Lantus] Insulin Lispro [Humalog Kwikpen] 10 - 15 unit SQ 4X/DAY 12/30/17 Insulin Lispro [Humalog] 40 unit SQ DAILY 12/30/17 Levothyroxine [Synthroid] 112 mcg PO DAILY 12/30/17 Metolazone [Zaroxolyn] 5 mg PO QODAY 12/30/17 Multivitamin/Iron/Folic Acid 1 each PO DAILY 12/30/17 [Centrum Adults Tablet] Nitroglycerin 0.4 mg SL PRN PRN 12/30/17 Oxycodone [Oxyir] 5 mg PO Q6H PRN PRN 12/30/17 Potassium Chloride [Klor-Con 10] 10 meq PO QODAY 12/30/17 Ranitidine [Zantac] 150 mg PO DAILY PRN 12/30/17 Sotalol HCl [Betapace AF (Beta 40 mg PO DAILY 12/30/17 Jim)] - Family History Paternal - - The patient's father at the age of 88 with a history of cerebrovascular accident. Patient's mother at age of 85 with a history of coronary artery disease and dementia. Lives: Alone Smoking Status: Never smoker Tobacco Use: Non-smoker Alcohol: None Drugs: None Review of Systems Constitutional: Denies: Chills, Fever, Weight Change Eyes: Denies: Pain, Vision Change HEENT: Denies: Difficulty Hearing, Difficulty Swallowing, Sinus Congestion Cardiovascular: Denies: Chest Pain, Palpitations Respiratory: Denies: Cough, Shortness of Breath Gastrointestinal: Denies: Diarrhea, Nausea, Vomiting Genitourinary: Denies: Dysuria, Hematuria Endocrine: Denies: Heat/ Cold Intolerance, Polydipsia, Polyuria Hematologic/ Lymphatic: Denies: Easy Bruising, Easy Bleeding - Physical Exam Vital Signs Temp Pulse Resp BP 96.2 F L 84 18 137/67 H 01/13/18 08:43 01/20/18 08:58 01/20/18 08:58 01/20/18 08:58 General: Alert, Oriented x3, Cooperative, No apparent distress, Well developed, Well nourished, - - The patient is obese HEENT: Atraumatic, PERRLA, EOMI, Normocephalic Oral: Moist Mucosa Neck: No JVD Lungs: Normal air movement Abdomen: Non-Distended Extremities: No clubbing, No cyanosis, No edema, No Calf Tenderness Skin: - - The sacrococcygeal pressure ulceration is improved. It is smaller in size. Dimensions are documented elsewhere. There is no sign of infection or cellulitis. There is a moderate amount of bioburden present at the surface of the ulceration, which was easily removed at the time of excisional debridement. Wound Measurements and Assessment WC - Nurse 1 - General Ulcer Measurement Start: 12/30/17 16:08 Freq: Status: Active Protocol: Activity Type Activity Date Activity User E-Sign Co-Sign Detail Recorded Client Recorded Date Recorded By Document 01/20/18 08:58 DV [id number] 01/20/18 09:02 01/20/18 08:58 Wound Center Nurse 1 [Ulcer Assessment] #1 coccyx -Combined with other wound No -Current Size (cm) - Length 1.2 -Current Size (cm) - Width 0.3 -Current Size (cm) - Depth 0.1 -Total Square Cm 0.36 -Photo Taken No -Epithelialization Small 1-33% -Tunneling No -Undermining/Tunneling No -Circular Undermining No -Classification - Thickness Partial Thickness -Exudate Amt Small (1-33%) -Exudate Type Serous -Wound Margin Distinct, Outline Attached -Granulation Amt None Present (0 %) -Granulation Quality N/A -Slough/Fibrin Yes -Necrosis Amt Large (67-100%) -Necrotic Tissue Type Adherent Slough -Structure Exposed None/Limited to Skin Breakdown -Texture (Carol-wound Skin Appearance) Assessed Scarring -Moisture (Carol-wound Skin Appearance Assessed ) Weeping -Color (Carol-wound Skin Appearance) Assessed Erythema -Temperature (Carol-wound Skin No Abnormality Appearance) (Pt Warm) -Ulcer Cleansing Rinsed/ Irrigated with Saline -Foul Odor after Cleansing No -Anesthetic Used 5% Lidocaine Gel WC - Nurse 2 - General Ulcer CM Notes Start: 12/30/17 16:08 Freq: Status: Active Protocol: Activity Type Activity Date Activity User E-Sign Co-Sign Detail Recorded Client Recorded Date Recorded By Document 01/20/18 09:12 [id number] 01/20/18 09:13 01/20/18 09:12 Wound Center Nurse 2 [Procedure/Treatment] -Time 09:12 -Correct Patient Yes -Correct Side, Site, Position Yes -Correct Procedure Yes -Procedure Performed Yes -Type of Procedure Debridement -Clinical Debridement Subcutaneous -Post Debridement Size (cm) - Length 1.5 -Post Debridement Size (cm) - Width 0.3 -Post Debridement Size (cm) - Depth 0.2 -Total Square Cm 0.45 -Wound/Ulcer Outcome Not Healed -Ulcer Cleansing Rinsed/ Irrigated with Saline -Foul Odor after Cleansing No -Bioengineered Tissue No -Bleeding Controlled with Pressure -Treatment Response Procedure Tolerated Well [See Physician Procedure note for Specifics] Pain Scale: 0-10 Numeric [Pain] -Is Patient Pain Free? Yes Neurological: Cranial nerves II-XII grossly intact, Neuro grossly intact Psych/Mental Status: Normal Affect, Appropriate, Alert and oriented to time, place, person, mood and affect Debridement Note Post-Debridement Measurements/Treatment WC - Nurse 2 - General Ulcer CM Notes Start: 12/30/17 16:08 Freq: Status: Active Protocol: Activity Type Activity Date Activity User E-Sign Co-Sign Detail Recorded Client Recorded Date Recorded By Document 12/30/17 16:40 [id number] 12/30/17 17:16 JS Document 01/06/18 09:15 JS [id number] 01/06/18 09:17 JS Document 01/20/18 09:12 [id number] 01/20/18 09:13 JF 12/30/17 01/06/18 01/20/18 16:40 09:15 09:12 Wound Center Nurse 2 #1 coccyx -Time 16:40 09:15 09:12 -Correct Patient Yes Yes Yes -Correct Side, Site, Position Yes Yes Yes -Correct Procedure Yes Yes Yes -Procedure Performed Yes Yes Yes -Type of Procedure Debridement Debridement Debridement -Clinical Debridement Subcutaneous Subcutaneous Subcutaneous -Post Debridement Size (cm) - Length 2.0 1.6 1.5 -Post Debridement Size (cm) - Width 2.0 0.6 0.3 -Post Debridement Size (cm) - Depth 0.1 0.2 0.2 -Total Square Cm 4.00 0.96 0.45 -Wound/Ulcer Outcome Not Healed Not Healed Not Healed -Ulcer Cleansing Rinsed/ Rinsed/ Rinsed/ Irrigated with Irrigated with Irrigated with Saline Saline Saline -Foul Odor after Cleansing No No No -Bioengineered Tissue No No No -Topical Lidocaine (%) 4 -Lidocaine (ml) 5 -Bleeding Controlled with NA Pressure Pressure -Treatment Response Procedure Procedure Procedure Tolerated Well Tolerated Well Tolerated Well Pain Scale: 0-10 Numeric Is Patient Pain Free? Yes Yes Yes Laterality: Not Applicable - Coccygeal pressure ulceration Type of Debridement: Excisional debridement Anesthesia Used: 4% Lidocaine Solution Depth: Down to and including healthy tissue, in the subcutaneous layer Percentage of wound debrided: 100 Instrument Used: 5mm curette Severity: Fat Layer Exposed Amount of bleeding with debridement: Mild Bleeding Controlled with: Compression and gauze Patient tolerated procedure well Assessment/Plan Active Problems Pressure ulcer of coccygeal region, stage 2 (Acute) CAD (coronary artery disease) (Chronic) Assessment: This is an 82-year-old female recently hospitalized for left intramedullary rodding secondary to a traumatic fracture. As result, she has developed a stage II pressure ulceration of the coccygeal region. Her other medical problems are documented above. There has been slight decrease in the size of the coccygeal ulceration, with increasing areas of pink healthy granulation tissue. We have obtained recent laboratory results from [facility], dated 12/20/2017. Results were as follows: White blood count 8.6, hemoglobin 10.7, hematocrit 32.2, platelets 336,000, glucose 105, sodium 140, potassium 3.2, chloride 97, BUN 54.3, creatinine 1.8. Plan: Offloading measures are to be continued. These measures have been discussed with the patient and her daughter, who is at the bedside. We have recommended a low air loss mattress, which may be difficult for the patient, as she is short, and it may preclude her from actually placing herself within her bed. Enhanced nutrition and protein intake has been recommended. The patient is taking nutritional supplements. Optimization of the patient's diabetes has been recommended. Weekly mechanical debridements have been implemented, and are anticipated to continue. We are to continue local care using collagenase Santyl applied topically on a daily basis. The patient and her daughter have been advised to assure that gauze contacts the wound bed as much as possible, given that the ulceration is well within the cleft of her buttocks. She will return in 1 week for reassessment. The patient is not a smoker. Influenza vaccine was not administered today. Patient weighs 179 pounds. She stands 5 feet 1 inches tall. Her BMI is 33.8, which places her in a class II category. Weight loss has been recommended, and she has been advised to collaborate with her primary care physician in this regard.
== END 2018-01-26 23:59 ==
LOC: WC 09:00
PROVIDERS: Family Provider Family Medicine; PCP Family Medicine; Visit Provider Surgery
DX: E11.622 Type 2 diabetes mellitus with other skin ulcer (principal); I89.0 Lymphedema, not elsewhere classified; E03.9 Hypothyroidism, unspecified; I25.10 Atherosclerotic heart disease of native coronary artery without angina pectoris; L89.152 Pressure ulcer of sacral region, stage 2; E78.5 Hyperlipidemia, unspecified; K21.9 Gastro-esophageal reflux disease without esophagitis; E66.9 Obesity, unspecified; Z68.33 Body mass index [BMI] 33.0-33.9, adult; Z71.3 Dietary counseling and surveillance; Z79.899 Other long term (current) drug therapy; Z79.4 Long term (current) use of insulin
CPT/HCPCS: 11042; 99203; G0463

== ENCOUNTER 2018-02-09 11:24 | Outpatient (RCR) | payer MEDICARE, SELFPAY ==
[2018-02-09 14:17] LABS: Anion Gap 8 (5-15); BUN 33 mg/dL (7-18); BUN/Creat Ratio 25.8 RATIO (10-20); Calcium,Total 9.3 mg/dL (8.5-10.1); Chloride 101 mmol/L (98-107); Creatinine, Serum 1.28 mg/dL (0.55-1.02); EST Glomerular Filtration Rate 43 mL/min (>60); Est Glom Filt Rate - Afr Amer 51 mL/min (>60); Glucose 172 mg/dL (74-106); Magnesium 1.4 mg/dL (1.6-2.6); Potassium 3.3 mmol/L (3.5-5.1); Sodium Level 140 mmol/L (136-145)
== END 2018-02-26 23:59 ==
LOC: HHLAB 11:24
PROVIDERS: Family Provider Family Medicine; PCP Family Medicine
DX: I11.9 Hypertensive heart disease without heart failure (principal); E11.22 Type 2 diabetes mellitus with diabetic chronic kidney disease; S72.142D Displaced intertrochanteric fracture of left femur, subsequent encounter for closed fracture with routine healing; E83.42 Hypomagnesemia; E87.6 Hypokalemia
CPT/HCPCS: 80048; 83735

== ENCOUNTER 2018-02-17 08:30 | Outpatient (RCR) | payer MEDICARE, SELFPAY ==
[2018-01-27 01:03] VITALS: PULSE 84; RESP 18; TEMP 35.7
[2018-01-27 08:41] VITALS: BP 134/63; PULSE 64; RESP 18; TEMP 36.1
--- NOTE | 2018-01-27 08:56 | HP.PCM_ITS ---
(1) Pressure ulcer of coccygeal region, stage 2 Status: Chronic Current Visit: Yes Code(s): L89.152 - Pressure ulcer of sacral region, stage 2 (2) CAD (coronary artery disease) Status: Chronic Current Visit: No Qualifiers: Coronary Disease-Associated Artery/Lesion type: [place] artery [place] vs. transplanted heart: [place] heart Code(s): I25.10 - Atherosclerotic heart disease of [place] coronary artery without angina pectoris (3) Lymphedema Status: Chronic Current Visit: No Code(s): I89.0 - Lymphedema, not elsewhere classified (4) Hypothyroidism Status: Chronic Current Visit: No Code(s): E03.9 - Hypothyroidism, unspecified (5) Diabetes mellitus Status: Chronic Current Visit: Yes Qualifiers: Diabetes mellitus type: type 2 Code(s): E11.9 - Type 2 diabetes mellitus without complications (6) Renal insufficiency Status: Chronic Current Visit: No Code(s): N28.9 - Disorder of kidney and ureter, unspecified (7) Gout Status: Chronic Current Visit: No Code(s): M10.9 - Gout, unspecified (8) Hyperlipidemia Status: Chronic Current Visit: No Code(s): E78.5 - Hyperlipidemia, unspecified (9) GERD (gastroesophageal reflux disease) Status: Chronic Current Visit: No Code(s): K21.9 - Gastro-esophageal reflux disease without esophagitis (10) Obesity (BMI 30.0-34.9) Status: Chronic Current Visit: No Code(s): E66.9 - Obesity, unspecified History of Present Illness Date of Service: 01/27/18 Chief Complaint: Stage II pressure ulceration of the coccygeal region History of Wound: This is an 82-year-old female who was recently hospitalized at [facility], and underwent left intramedullary rodding of a left hip fracture on December 08, 2017. Postoperatively, she developed a pressure ulceration of the coccyx, which was noted on December 15, 2017. The patient is now ambulatory, though requires the use of a walker. She sleeps on a flat mattress at night. Because of her recent surgery on the left hip, she is unable to lay on her left side in the left lateral decubitus position. Recently , management has been by means of offloading measures, and the use of collagenase Santyl applied topically on a daily basis. Past Medical History Past Medical History: Chronic Problems Pressure ulcer of coccygeal region, stage 2 (Chronic) CAD (coronary artery disease) (Chronic) Lymphedema (Chronic) Hypothyroidism (Chronic) Diabetes mellitus (Chronic) Renal insufficiency (Chronic) Gout (Chronic) Hyperlipidemia (Chronic) GERD (gastroesophageal reflux disease) (Chronic) Obesity (BMI 30.0-34.9) (Chronic) Surgical History: - - Patient underwent hysterectomy in 1969. Bladder suspension was performed in 1962. Patient is undergone rotator cuff surgery on the right twice. She is undergone lumbar surgery in 1983. She has had bilateral cataract surgery. Right inguinal hernia repair was performed in the past. She underwent left intramedullary rodding on December 08, 2017. Allergies/Adverse Reactions: Allergies cefuroxime [From Ceftin] Allergy (Verified 12/30/17 16:25) Rash codeine Allergy (Verified 12/30/17 16:25) Rash erythromycin base Allergy (Verified 12/30/17 16:25) Rash Penicillins Allergy (Verified 12/30/17 16:25) Rash Home Medications: Ambulatory Orders Medication Instructions Recorded Acetaminophen [Tylenol] 650 mg PO 5X/DAY 12/30/17 Aspirin [Adult Low Dose Aspirin EC] 81 mg PO DAILY 12/30/17 Atorvastatin Calcium [Lipitor] 10 mg PO QHS 12/30/17 Celecoxib [Celebrex] 200 mg PO DAILY PRN PRN 12/30/17 Cholecalciferol (Vitamin D3) 1,000 unit PO BID 12/30/17 [Vitamin D3] Colestipol Tablet [Colestid Tablet] 1 gm PO DAILY 12/30/17 Febuxostat [Uloric] 40 mg PO DAILY 12/30/17 Furosemide [Lasix] 40 mg PO DAILY 12/30/17 Insulin Glargine,Hum.rec.anlog 35 unit SQ DAILY 12/30/17 [Lantus] Insulin Lispro [Humalog Kwikpen] 10 - 15 unit SQ 4X/DAY 12/30/17 Insulin Lispro [Humalog] 40 unit SQ DAILY 12/30/17 Levothyroxine [Synthroid] 112 mcg PO DAILY 12/30/17 Metolazone [Zaroxolyn] 5 mg PO QODAY 12/30/17 Multivitamin/Iron/Folic Acid 1 each PO DAILY 12/30/17 [Centrum Adults Tablet] Nitroglycerin 0.4 mg SL PRN PRN 12/30/17 Oxycodone [Oxyir] 5 mg PO Q6H PRN PRN 12/30/17 Potassium Chloride [Klor-Con 10] 10 meq PO QODAY 12/30/17 Ranitidine [Zantac] 150 mg PO DAILY PRN 12/30/17 Sotalol HCl [Betapace AF (Beta 40 mg PO DAILY 12/30/17 Jim)] - Family History Paternal - - The patient's father at the age of 88 with a history of cerebrovascular accident. Patient's mother at age of 85 with a history of coronary artery disease and dementia. Smoking Status: Never smoker Tobacco Use: Non-smoker Review of Systems Constitutional: Denies: Chills, Fever, Weight Change Eyes: Denies: Pain, Vision Change HEENT: Denies: Difficulty Hearing, Difficulty Swallowing, Sinus Congestion Cardiovascular: Denies: Chest Pain, Palpitations Respiratory: Denies: Cough, Shortness of Breath Gastrointestinal: Denies: Diarrhea, Nausea, Vomiting Genitourinary: Denies: Dysuria, Hematuria Endocrine: Denies: Heat/ Cold Intolerance, Polydipsia, Polyuria Hematologic/ Lymphatic: Denies: Easy Bruising, Easy Bleeding - Physical Exam Vital Signs Temp Pulse Resp BP 96.9 F L 64 18 134/63 H 01/27/18 08:41 01/27/18 08:41 01/27/18 08:41 01/27/18 08:41 General: Alert, Oriented x3, Cooperative, No apparent distress, Well developed, Well nourished HEENT: Atraumatic, PERRLA, EOMI, Normocephalic Oral: Moist Mucosa Neck: No JVD Lungs: Normal air movement Abdomen: Non-Distended, Obese Extremities: No clubbing, No cyanosis, No Calf Tenderness Skin: No rashes, - - The patient's sacrococcygeal pressure ulceration is smaller in size. Dimensions are documented elsewhere. There is no sign of infection or cellulitis. There is a small amount of bioburden. Wound Measurements and Assessment WC - Nurse 1 - General Ulcer Measurement Start: 01/27/18 08:40 Freq: Status: Active Protocol: Activity Type Activity Date Activity User E-Sign Co-Sign Detail Recorded Client Recorded Date Recorded By Document 01/27/18 08:41 TM [id number] 01/27/18 08:42 01/27/18 08:41 Wound Center Nurse 1 [Ulcer Assessment] #1 coccyx -Current Size (cm) - Length 0.7 -Current Size (cm) - Width 0.2 -Current Size (cm) - Depth 0.1 -Total Square Cm 0.14 -Date of Last Picture (Recall this 01/27/18 field) -Photo Taken Yes -Epithelialization Small 1-33% -Tunneling No -Undermining/Tunneling No -Circular Undermining No -Classification - Thickness Full Thickness without Exposed Support Structure -Exudate Amt Small (1-33%) -Exudate Type Serosanguineous -Wound Margin Distinct, Outline Attached -Granulation Amt Small (1-33%) -Granulation Quality Red -Slough/Fibrin Yes -Necrosis Amt Large (67-100%) -Necrotic Tissue Type Adherent Slough -Structure Exposed Fascia Fat Layer Exposed -Texture (Carol-wound Skin Appearance) Friable -Moisture (Carol-wound Skin Appearance No Abnormality ) -Color (Carol-wound Skin Appearance) Erythema -Ulcer Cleansing Rinsed/ Irrigated with Saline -Foul Odor after Cleansing No -Anesthetic Used 5% Lidocaine Gel [Edema Assessment] -Lower Limb Edema Present No Neurological: Cranial nerves II-XII grossly intact, Neuro grossly intact Psych/Mental Status: Normal Affect, Appropriate, Alert and oriented to time, place, person, mood and affect Debridement Note Laterality: Not Applicable - Sacrococcygeal pressure ulceration Type of Debridement: Excisional debridement Anesthesia Used: 5% Lidocaine Gel Depth: Down to and including healthy tissue, in the subcutaneous layer Percentage of wound debrided: 100 Instrument Used: 5mm curette Severity: Fat Layer Exposed Amount of bleeding with debridement: Mild Bleeding Controlled with: Compression and gauze Patient tolerated procedure well Assessment/Plan Active Problems Pressure ulcer of coccygeal region, stage 2 (Chronic) Diabetes mellitus (Chronic) Assessment: This is an 82-year-old female recently hospitalized for left intramedullary rodding secondary to a traumatic fracture. As result, she has developed a stage II pressure ulceration of the coccygeal region. Her other medical problems are documented above. There has been decrease in the size of the coccygeal ulceration, with increasing areas of pink healthy granulation tissue. We have obtained recent laboratory results from [facility], dated 12/20/2017. Results were as follows: White blood count 8.6, hemoglobin 10.7, hematocrit 32.2, platelets 336,000, glucose 105, sodium 140, potassium 3.2, chloride 97, BUN 54.3, creatinine 1.8. Plan: Offloading measures are to be continued. These measures have been discussed with the patient and her daughter, who is at the bedside. We have recommended a low air loss mattress, which may be difficult for the patient, as she is short, and it may preclude her from actually placing herself within her bed. Enhanced nutrition and protein intake has been recommended. The patient is taking nutritional supplements. Optimization of the patient's diabetes has been recommended. Weekly mechanical debridements have been implemented, and are anticipated to continue. We are to continue local care using collagenase Santyl applied topically on a daily basis. The patient and her daughter have been advised to assure that gauze contacts the wound bed as much as possible, given that the ulceration is well within the cleft of her buttocks. She will return in 1 week for reassessment. The patient is not a smoker. Influenza vaccine was not administered today. Patient weighs 179 pounds. She stands 5 feet 1 inches tall. Her BMI is 33.8, which places her in a class II category. Weight loss has been recommended, and she has been advised to collaborate with her primary care physician in this regard.
[2018-02-03 08:34] VITALS: BP 144/66; PULSE 63; RESP 18; TEMP 36.8
--- NOTE | 2018-02-03 08:59 | PCM.WC.HP ---
(1) Pressure ulcer of coccygeal region, stage 2 Status: Chronic Current Visit: Yes Code(s): L89.152 - Pressure ulcer of sacral region, stage 2 (2) CAD (coronary artery disease) Status: Chronic Current Visit: No Qualifiers: Coronary Disease-Associated Artery/Lesion type: [place] artery [place] vs. transplanted heart: [place] heart Code(s): I25.10 - Atherosclerotic heart disease of [place] coronary artery without angina pectoris (3) Lymphedema Status: Chronic Current Visit: No Code(s): I89.0 - Lymphedema, not elsewhere classified (4) Hypothyroidism Status: Chronic Current Visit: No Code(s): E03.9 - Hypothyroidism, unspecified (5) Diabetes mellitus Status: Chronic Current Visit: Yes Qualifiers: Diabetes mellitus type: type 2 Code(s): E11.9 - Type 2 diabetes mellitus without complications (6) Renal insufficiency Status: Chronic Current Visit: No Code(s): N28.9 - Disorder of kidney and ureter, unspecified (7) Gout Status: Chronic Current Visit: No Code(s): M10.9 - Gout, unspecified (8) Hyperlipidemia Status: Chronic Current Visit: No Code(s): E78.5 - Hyperlipidemia, unspecified (9) GERD (gastroesophageal reflux disease) Status: Chronic Current Visit: No Code(s): K21.9 - Gastro-esophageal reflux disease without esophagitis (10) Obesity (BMI 30.0-34.9) Status: Chronic Current Visit: No Code(s): E66.9 - Obesity, unspecified History of Present Illness Date of Service: 02/03/18 Chief Complaint: Stage II pressure ulceration of the coccygeal region History of Wound: This is an 82-year-old female who was recently hospitalized at [facility], and underwent left intramedullary rodding of a left hip fracture on December 08, 2017. Postoperatively, she developed a pressure ulceration of the coccyx, which was noted on December 15, 2017. The patient is now ambulatory, though requires the use of a walker. She sleeps on a flat mattress at night. Because of her recent surgery on the left hip, she is unable to lay on her left side in the left lateral decubitus position. Recently, management has been by means of offloading measures, and the use of collagenase Santyl applied topically on a daily basis. Past Medical History Past Medical History: Chronic Problems Pressure ulcer of coccygeal region, stage 2 (Chronic) CAD (coronary artery disease) (Chronic) Lymphedema (Chronic) Hypothyroidism (Chronic) Diabetes mellitus (Chronic) Renal insufficiency (Chronic) Gout (Chronic) Hyperlipidemia (Chronic) GERD (gastroesophageal reflux disease) (Chronic) Obesity (BMI 30.0-34.9) (Chronic) Surgical History: - - Patient underwent hysterectomy in 1969. Bladder suspension was performed in 1962. Patient is undergone rotator cuff surgery on the right twice. She is undergone lumbar surgery in 1983. She has had bilateral cataract surgery. Right inguinal hernia repair was performed in the past. She underwent left intramedullary rodding on December 08, 2017. Allergies/Adverse Reactions: Allergies cefuroxime [From Ceftin] Allergy (Verified 12/30/17 16:25) Rash codeine Allergy (Verified 12/30/17 16:25) Rash erythromycin base Allergy (Verified 12/30/17 16:25) Rash Penicillins Allergy (Verified 12/30/17 16:25) Rash Home Medications: Ambulatory Orders Medication Instructions Recorded Acetaminophen [Tylenol] 650 mg PO 5X/DAY 12/30/17 Aspirin [Adult Low Dose Aspirin EC] 81 mg PO DAILY 12/30/17 Atorvastatin Calcium [Lipitor] 10 mg PO QHS 12/30/17 Celecoxib [Celebrex] 200 mg PO DAILY PRN PRN 12/30/17 Cholecalciferol (Vitamin D3) 1,000 unit PO BID 12/30/17 [Vitamin D3] Colestipol Tablet [Colestid Tablet] 1 gm PO DAILY 12/30/17 Febuxostat [Uloric] 40 mg PO DAILY 12/30/17 Furosemide [Lasix] 40 mg PO DAILY 12/30/17 Insulin Glargine,Hum.rec.anlog 35 unit SQ DAILY 12/30/17 [Lantus] Insulin Lispro [Humalog Kwikpen] 10 - 15 unit SQ 4X/DAY 12/30/17 Insulin Lispro [Humalog] 40 unit SQ DAILY 12/30/17 Levothyroxine [Synthroid] 112 mcg PO DAILY 12/30/17 Metolazone [Zaroxolyn] 5 mg PO QODAY 12/30/17 Multivitamin/Iron/Folic Acid 1 each PO DAILY 12/30/17 [Centrum Adults Tablet] Nitroglycerin 0.4 mg SL PRN PRN 12/30/17 Oxycodone [Oxyir] 5 mg PO Q6H PRN PRN 12/30/17 Potassium Chloride [Klor-Con 10] 10 meq PO QODAY 12/30/17 Ranitidine [Zantac] 150 mg PO DAILY PRN 12/30/17 Sotalol HCl [Betapace AF (Beta 40 mg PO DAILY 12/30/17 Jim)] - Family History Paternal - - The patient's father at the age of 88 with a history of cerebrovascular accident. Patient's mother at age of 85 with a history of coronary artery disease and dementia. Smoking Status: Never smoker Tobacco Use: Non-smoker Review of Systems Constitutional: Denies: Chills, Fever, Weight Change Eyes: Denies: Pain, Vision Change HEENT: Denies: Difficulty Hearing, Difficulty Swallowing, Sinus Congestion Cardiovascular: Denies: Chest Pain, Palpitations Respiratory: Denies: Cough, Shortness of Breath Gastrointestinal: Denies: Diarrhea, Nausea, Vomiting Genitourinary: Denies: Dysuria, Hematuria Endocrine: Denies: Heat/ Cold Intolerance, Polydipsia, Polyuria Hematologic/ Lymphatic: Denies: Easy Bruising, Easy Bleeding - Physical Exam Vital Signs Temp Pulse Resp BP 98.3 F 63 18 144/66 H 02/03/18 08:34 02/03/18 08:34 02/03/18 08:34 02/03/18 08:34 General: Alert, Oriented x3, Cooperative, No apparent distress, Well developed, Well nourished HEENT: Atraumatic, PERRLA, EOMI, Normocephalic Oral: Moist Mucosa Neck: No JVD Lungs: Normal air movement Abdomen: Non-Distended Extremities: No clubbing, No cyanosis, No edema, No Calf Tenderness Skin: - - The pressure ulceration in the coccygeal area appears much improved. It is smaller in size. The base of the ulceration is pink and healthy in appearance, with active granulation tissue. There is only a small amount of bioburden. Dimensions are documented elsewhere. Wound Measurements and Assessment WC - Nurse 1 - General Ulcer Measurement Start: 01/27/18 08:40 Freq: Status: Active Protocol: Activity Type Activity Date Activity User E-Sign Co-Sign Detail Recorded Client Recorded Date Recorded By Document 02/03/18 08:34 [id number] 02/03/18 08:36 02/03/18 08:34 Wound Center Nurse 1 [Ulcer Assessment] #1 coccyx -Combined with other wound No -Current Size (cm) - Length 0.9 -Current Size (cm) - Width 0.2 -Current Size (cm) - Depth 0.1 -Total Square Cm 0.18 -Date of Last Picture (Recall this 02/03/18 field) -Photo Taken Yes -Epithelialization Small 1-33% -Tunneling No -Undermining/Tunneling No -Circular Undermining No -Classification - Thickness Full Thickness without Exposed Support Structure -Exudate Amt Small (1-33%) -Exudate Type Serosanguineous -Wound Margin Distinct, Outline Attached -Granulation Amt Medium (34-66%) -Granulation Quality Red -Slough/Fibrin Yes -Necrosis Amt Medium (34-66%) -Necrotic Tissue Type Adherent Slough -Structure Exposed Fascia Fat Layer Exposed -Texture (Carol-wound Skin Appearance) Friable -Moisture (Carol-wound Skin Appearance No Abnormality ) -Color (Carol-wound Skin Appearance) Erythema -Temperature (Carol-wound Skin No Abnormality Appearance) (Pt Warm) -Tenderness on Palpation (Carol-wound No Skin Appearance) -Ulcer Cleansing Rinsed/ Irrigated with Saline -Foul Odor after Cleansing No -Anesthetic Used 5% Lidocaine Gel [Edema Assessment] -Lower Limb Edema Present No WC - Nurse 2 - General Ulcer CM Notes Start: 01/27/18 08:40 Freq: Status: Active Protocol: Activity Type Activity Date Activity User E-Sign Co-Sign Detail Recorded Client Recorded Date Recorded By Document 02/03/18 08:56 [id number] 02/03/18 08:58 02/03/18 08:56 Wound Center Nurse 2 [Procedure/Treatment] #1 coccyx -Time 08:56 -Correct Patient Yes -Correct Side, Site, Position Yes -Correct Procedure Yes -Procedure Performed Yes -Type of Procedure Debridement -Clinical Debridement Subcutaneous -Post Debridement Size (cm) - Length 1.0 -Post Debridement Size (cm) - Width 0.2 -Post Debridement Size (cm) - Depth 0.1 -Total Square Cm 0.20 -Wound/Ulcer Outcome Not Healed -Ulcer Cleansing Rinsed/ Irrigated with Saline -Foul Odor after Cleansing No -Bioengineered Tissue No -Topical Lidocaine (%) 4 -Lidocaine (ml) 5 -Bleeding Controlled with NA -Treatment Response Procedure Tolerated Well [See Physician Procedure note for Specifics] Pain Scale: 0-10 Numeric [Pain] -Is Patient Pain Free? Yes Neurological: Cranial nerves II-XII grossly intact, Neuro grossly intact Psych/Mental Status: Normal Affect, Appropriate, Alert and oriented to time, place, person, mood and affect Debridement Note Post-Debridement Measurements/Treatment WC - Nurse 2 - General Ulcer CM Notes Start: 01/27/18 08:40 Freq: Status: Active Protocol: Activity Type Activity Date Activity User E-Sign Co-Sign Detail Recorded Client Recorded Date Recorded By Document 01/27/18 08:53 [id number] 01/27/18 08:59 Document 02/03/18 08:56 [id number] 02/03/18 08:58 JS 01/27/18 02/03/18 08:53 08:56 Wound Center Nurse 2 #1 coccyx -Time 08:57 08:56 -Correct Patient Yes Yes -Correct Side, Site, Position Yes Yes -Correct Procedure Yes Yes -Procedure Performed Yes Yes -Type of Procedure Debridement Debridement -Clinical Debridement Subcutaneous Subcutaneous -Post Debridement Size (cm) - Length 0.8 1.0 -Post Debridement Size (cm) - Width 0.2 0.2 -Post Debridement Size (cm) - Depth 0.1 0.1 -Total Square Cm 0.16 0.20 -Wound/Ulcer Outcome Not Healed Not Healed -Ulcer Cleansing Not Cleansed Rinsed/ Irrigated with Saline -Foul Odor after Cleansing No No -Bioengineered Tissue No No -Topical Lidocaine (%) 5 4 -Lidocaine (ml) 5 -Bleeding Controlled with NA NA -Treatment Response Procedure Procedure Tolerated Well Tolerated Well Pain Scale: 0-10 Numeric Is Patient Pain Free? Yes Yes Laterality: Not Applicable - Sacro-Coccygeal area Type of Debridement: Excisional debridement Anesthesia Used: 4% Lidocaine Solution Depth: Down to and including healthy tissue, in the subcutaneous layer Percentage of wound debrided: 100 Instrument Used: 5mm curette Severity: Fat Layer Exposed Amount of bleeding with debridement: Mild Bleeding Controlled with: Compression and gauze Patient tolerated procedure well Assessment/Plan Active Problems Pressure ulcer of coccygeal region, stage 2 (Chronic) Diabetes mellitus (Chronic) Assessment: This is an 82-year-old female recently hospitalized for left intramedullary rodding secondary to a traumatic fracture. As result, she has developed a stage II pressure ulceration of the coccygeal region. Her other medical problems are documented above. There has been decrease in the size of the coccygeal ulceration, with increasing areas of pink healthy granulation tissue. We have obtained recent laboratory results from [facility], dated 12/20/2017. Results were as follows: White blood count 8.6, hemoglobin 10.7, hematocrit 32.2, platelets 336,000, glucose 105, sodium 140, potassium 3.2, chloride 97, BUN 54.3, creatinine 1.8. Plan: Offloading measures are to be continued. These measures have been discussed with the patient and her daughter, who is at the bedside. We have recommended a low air loss mattress, which may be difficult for the patient, as she is short, and it may preclude her from actually placing herself within her bed. We have also provided a prescription for a gel cushion. Enhanced nutrition and protein intake have been recommended. The patient is taking nutritional supplements. Optimization of the patient's diabetes has been recommended. Weekly mechanical debridements have been implemented, and are anticipated to continue. We are to continue local care using collagenase Santyl applied topically on a daily basis. The patient and her daughter have been advised to assure that gauze contacts the wound bed as much as possible, given that the ulceration is well within the cleft of her buttocks. She will return in 1 week for reassessment. The patient is not a smoker. Influenza vaccine was not administered today. Patient weighs 179 pounds. She stands 5 feet 1 inches tall. Her BMI is 33.8, which places her in a class II category. Weight loss has been recommended, and she has been advised to collaborate with her primary care physician in this regard.
--- NOTE | 2018-02-03 09:02 | HP.PCM_ITS ---
(1) Pressure ulcer of coccygeal region, stage 2 Status: Chronic Current Visit: Yes Code(s): L89.152 - Pressure ulcer of sacral region, stage 2 (2) CAD (coronary artery disease) Status: Chronic Current Visit: No Qualifiers: Coronary Disease-Associated Artery/Lesion type: [place] artery [place] vs. transplanted heart: [place] heart Code(s): I25.10 - Atherosclerotic heart disease of [place] coronary artery without angina pectoris (3) Lymphedema Status: Chronic Current Visit: No Code(s): I89.0 - Lymphedema, not elsewhere classified (4) Hypothyroidism Status: Chronic Current Visit: No Code(s): E03.9 - Hypothyroidism, unspecified (5) Diabetes mellitus Status: Chronic Current Visit: Yes Qualifiers: Diabetes mellitus type: type 2 Code(s): E11.9 - Type 2 diabetes mellitus without complications (6) Renal insufficiency Status: Chronic Current Visit: No Code(s): N28.9 - Disorder of kidney and ureter, unspecified (7) Gout Status: Chronic Current Visit: No Code(s): M10.9 - Gout, unspecified (8) Hyperlipidemia Status: Chronic Current Visit: No Code(s): E78.5 - Hyperlipidemia, unspecified (9) GERD (gastroesophageal reflux disease) Status: Chronic Current Visit: No Code(s): K21.9 - Gastro-esophageal reflux disease without esophagitis (10) Obesity (BMI 30.0-34.9) Status: Chronic Current Visit: No Code(s): E66.9 - Obesity, unspecified History of Present Illness Date of Service: 02/03/18 Chief Complaint: Stage II pressure ulceration of the coccygeal region History of Wound: This is an 82-year-old female who was recently hospitalized at [facility], and underwent left intramedullary rodding of a left hip fracture on December 08, 2017. Postoperatively, she developed a pressure ulceration of the coccyx, which was noted on December 15, 2017. The patient is now ambulatory, though requires the use of a walker. She sleeps on a flat mattress at night. Because of her recent surgery on the left hip, she is unable to lay on her left side in the left lateral decubitus position. Recently , management has been by means of offloading measures, and the use of collagenase Santyl applied topically on a daily basis. Past Medical History Past Medical History: Chronic Problems Pressure ulcer of coccygeal region, stage 2 (Chronic) CAD (coronary artery disease) (Chronic) Lymphedema (Chronic) Hypothyroidism (Chronic) Diabetes mellitus (Chronic) Renal insufficiency (Chronic) Gout (Chronic) Hyperlipidemia (Chronic) GERD (gastroesophageal reflux disease) (Chronic) Obesity (BMI 30.0-34.9) (Chronic) Surgical History: - - Patient underwent hysterectomy in 1969. Bladder suspension was performed in 1962. Patient is undergone rotator cuff surgery on the right twice. She is undergone lumbar surgery in 1983. She has had bilateral cataract surgery. Right inguinal hernia repair was performed in the past. She underwent left intramedullary rodding on December 08, 2017. Allergies/Adverse Reactions: Allergies cefuroxime [From Ceftin] Allergy (Verified 12/30/17 16:25) Rash codeine Allergy (Verified 12/30/17 16:25) Rash erythromycin base Allergy (Verified 12/30/17 16:25) Rash Penicillins Allergy (Verified 12/30/17 16:25) Rash Home Medications: Ambulatory Orders Medication Instructions Recorded Acetaminophen [Tylenol] 650 mg PO 5X/DAY 12/30/17 Aspirin [Adult Low Dose Aspirin EC] 81 mg PO DAILY 12/30/17 Atorvastatin Calcium [Lipitor] 10 mg PO QHS 12/30/17 Celecoxib [Celebrex] 200 mg PO DAILY PRN PRN 12/30/17 Cholecalciferol (Vitamin D3) 1,000 unit PO BID 12/30/17 [Vitamin D3] Colestipol Tablet [Colestid Tablet] 1 gm PO DAILY 12/30/17 Febuxostat [Uloric] 40 mg PO DAILY 12/30/17 Furosemide [Lasix] 40 mg PO DAILY 12/30/17 Insulin Glargine,Hum.rec.anlog 35 unit SQ DAILY 12/30/17 [Lantus] Insulin Lispro [Humalog Kwikpen] 10 - 15 unit SQ 4X/DAY 12/30/17 Insulin Lispro [Humalog] 40 unit SQ DAILY 12/30/17 Levothyroxine [Synthroid] 112 mcg PO DAILY 12/30/17 Metolazone [Zaroxolyn] 5 mg PO QODAY 12/30/17 Multivitamin/Iron/Folic Acid 1 each PO DAILY 12/30/17 [Centrum Adults Tablet] Nitroglycerin 0.4 mg SL PRN PRN 12/30/17 Oxycodone [Oxyir] 5 mg PO Q6H PRN PRN 12/30/17 Potassium Chloride [Klor-Con 10] 10 meq PO QODAY 12/30/17 Ranitidine [Zantac] 150 mg PO DAILY PRN 12/30/17 Sotalol HCl [Betapace AF (Beta 40 mg PO DAILY 12/30/17 Jim)] - Family History Paternal - - The patient's father at the age of 88 with a history of cerebrovascular accident. Patient's mother at age of 85 with a history of coronary artery disease and dementia. Smoking Status: Never smoker Tobacco Use: Non-smoker Review of Systems Constitutional: Denies: Chills, Fever, Weight Change Eyes: Denies: Pain, Vision Change HEENT: Denies: Difficulty Hearing, Difficulty Swallowing, Sinus Congestion Cardiovascular: Denies: Chest Pain, Palpitations Respiratory: Denies: Cough, Shortness of Breath Gastrointestinal: Denies: Diarrhea, Nausea, Vomiting Genitourinary: Denies: Dysuria, Hematuria Endocrine: Denies: Heat/ Cold Intolerance, Polydipsia, Polyuria Hematologic/ Lymphatic: Denies: Easy Bruising, Easy Bleeding - Physical Exam Vital Signs Temp Pulse Resp BP 98.3 F 63 18 144/66 H 02/03/18 08:34 02/03/18 08:34 02/03/18 08:34 02/03/18 08:34 General: Alert, Oriented x3, Cooperative, No apparent distress, Well developed, Well nourished HEENT: Atraumatic, PERRLA, EOMI, Normocephalic Oral: Moist Mucosa Neck: No JVD Lungs: Normal air movement Abdomen: Non-Distended Extremities: No clubbing, No cyanosis, No edema, No Calf Tenderness Skin: - - The pressure ulceration in the coccygeal area appears much improved. It is smaller in size. The base of the ulceration is pink and healthy in appearance, with active granulation tissue. There is only a small amount of bioburden. Dimensions are documented elsewhere. Wound Measurements and Assessment WC - Nurse 1 - General Ulcer Measurement Start: 01/27/18 08:40 Freq: Status: Active Protocol: Activity Type Activity Date Activity User E-Sign Co-Sign Detail Recorded Client Recorded Date Recorded By Document 02/03/18 08:34 [id number] 02/03/18 08:36 02/03/18 08:34 Wound Center Nurse 1 [Ulcer Assessment] #1 coccyx -Combined with other wound No -Current Size (cm) - Length 0.9 -Current Size (cm) - Width 0.2 -Current Size (cm) - Depth 0.1 -Total Square Cm 0.18 -Date of Last Picture (Recall this 02/03/18 field) -Photo Taken Yes -Epithelialization Small 1-33% -Tunneling No -Undermining/Tunneling No -Circular Undermining No -Classification - Thickness Full Thickness without Exposed Support Structure -Exudate Amt Small (1-33%) -Exudate Type Serosanguineous -Wound Margin Distinct, Outline Attached -Granulation Amt Medium (34-66%) -Granulation Quality Red -Slough/Fibrin Yes -Necrosis Amt Medium (34-66%) -Necrotic Tissue Type Adherent Slough -Structure Exposed Fascia Fat Layer Exposed -Texture (Carol-wound Skin Appearance) Friable -Moisture (Carol-wound Skin Appearance No Abnormality ) -Color (Carol-wound Skin Appearance) Erythema -Temperature (Carol-wound Skin No Abnormality Appearance) (Pt Warm) -Tenderness on Palpation (Carol-wound No Skin Appearance) -Ulcer Cleansing Rinsed/ Irrigated with Saline -Foul Odor after Cleansing No -Anesthetic Used 5% Lidocaine Gel [Edema Assessment] -Lower Limb Edema Present No WC - Nurse 2 - General Ulcer CM Notes Start: 01/27/18 08:40 Freq: Status: Active Protocol: Activity Type Activity Date Activity User E-Sign Co-Sign Detail Recorded Client Recorded Date Recorded By Document 02/03/18 08:56 [id number] 02/03/18 08:58 02/03/18 08:56 Wound Center Nurse 2 [Procedure/Treatment] #1 coccyx -Time 08:56 -Correct Patient Yes -Correct Side, Site, Position Yes -Correct Procedure Yes -Procedure Performed Yes -Type of Procedure Debridement -Clinical Debridement Subcutaneous -Post Debridement Size (cm) - Length 1.0 -Post Debridement Size (cm) - Width 0.2 -Post Debridement Size (cm) - Depth 0.1 -Total Square Cm 0.20 -Wound/Ulcer Outcome Not Healed -Ulcer Cleansing Rinsed/ Irrigated with Saline -Foul Odor after Cleansing No -Bioengineered Tissue No -Topical Lidocaine (%) 4 -Lidocaine (ml) 5 -Bleeding Controlled with NA -Treatment Response Procedure Tolerated Well [See Physician Procedure note for Specifics] Pain Scale: 0-10 Numeric [Pain] -Is Patient Pain Free? Yes Neurological: Cranial nerves II-XII grossly intact, Neuro grossly intact Psych/Mental Status: Normal Affect, Appropriate, Alert and oriented to time, place, person, mood and affect Debridement Note Post-Debridement Measurements/Treatment WC - Nurse 2 - General Ulcer CM Notes Start: 01/27/18 08:40 Freq: Status: Active Protocol: Activity Type Activity Date Activity User E-Sign Co-Sign Detail Recorded Client Recorded Date Recorded By Document 01/27/18 08:53 [id number] 01/27/18 08:59 Document 02/03/18 08:56 [id number] 02/03/18 08:58 JS 01/27/18 02/03/18 08:53 08:56 Wound Center Nurse 2 #1 coccyx -Time 08:57 08:56 -Correct Patient Yes Yes -Correct Side, Site, Position Yes Yes -Correct Procedure Yes Yes -Procedure Performed Yes Yes -Type of Procedure Debridement Debridement -Clinical Debridement Subcutaneous Subcutaneous -Post Debridement Size (cm) - Length 0.8 1.0 -Post Debridement Size (cm) - Width 0.2 0.2 -Post Debridement Size (cm) - Depth 0.1 0.1 -Total Square Cm 0.16 0.20 -Wound/Ulcer Outcome Not Healed Not Healed -Ulcer Cleansing Not Cleansed Rinsed/ Irrigated with Saline -Foul Odor after Cleansing No No -Bioengineered Tissue No No -Topical Lidocaine (%) 5 4 -Lidocaine (ml) 5 -Bleeding Controlled with NA NA -Treatment Response Procedure Procedure Tolerated Well Tolerated Well Pain Scale: 0-10 Numeric Is Patient Pain Free? Yes Yes Laterality: Not Applicable - Sacro-Coccygeal area Type of Debridement: Excisional debridement Anesthesia Used: 4% Lidocaine Solution Depth: Down to and including healthy tissue, in the subcutaneous layer Percentage of wound debrided: 100 Instrument Used: 5mm curette Severity: Fat Layer Exposed Amount of bleeding with debridement: Mild Bleeding Controlled with: Compression and gauze Patient tolerated procedure well Assessment/Plan Active Problems Pressure ulcer of coccygeal region, stage 2 (Chronic) Diabetes mellitus (Chronic) Assessment: This is an 82-year-old female recently hospitalized for left intramedullary rodding secondary to a traumatic fracture. As result, she has developed a stage II pressure ulceration of the coccygeal region. Her other medical problems are documented above. There has been decrease in the size of the coccygeal ulceration, with increasing areas of pink healthy granulation tissue. We have obtained recent laboratory results from [facility], dated 12/20/2017. Results were as follows: White blood count 8.6, hemoglobin 10.7, hematocrit 32.2, platelets 336,000, glucose 105, sodium 140, potassium 3.2, chloride 97, BUN 54.3, creatinine 1.8. Plan: Offloading measures are to be continued. These measures have been discussed with the patient and her daughter, who is at the bedside. We have recommended a low air loss mattress, which may be difficult for the patient, as she is short, and it may preclude her from actually placing herself within her bed. We have also provided a prescription for a gel cushion. Enhanced nutrition and protein intake have been recommended. The patient is taking nutritional supplements. Optimization of the patient's diabetes has been recommended. Weekly mechanical debridements have been implemented, and are anticipated to continue. We are to continue local care using collagenase Santyl applied topically on a daily basis. The patient and her daughter have been advised to assure that gauze contacts the wound bed as much as possible, given that the ulceration is well within the cleft of her buttocks. She will return in 1 week for reassessment. The patient is not a smoker. Influenza vaccine was not administered today. Patient weighs 179 pounds. She stands 5 feet 1 inches tall. Her BMI is 33.8, which places her in a class II category. Weight loss has been recommended, and she has been advised to collaborate with her primary care physician in this regard.
[2018-02-10 08:21] VITALS: BP 132/58; PULSE 74; RESP 18; TEMP 36.3
--- NOTE | 2018-02-10 08:51 | PCM.WC.HP ---
(1) Pressure ulcer of coccygeal region, stage 2 Status: Chronic Current Visit: Yes Code(s): L89.152 - Pressure ulcer of sacral region, stage 2 (2) CAD (coronary artery disease) Status: Chronic Current Visit: No Qualifiers: Coronary Disease-Associated Artery/Lesion type: [place] artery [place] vs. transplanted heart: [place] heart Code(s): I25.10 - Atherosclerotic heart disease of [place] coronary artery without angina pectoris (3) Lymphedema Status: Chronic Current Visit: No Code(s): I89.0 - Lymphedema, not elsewhere classified (4) Hypothyroidism Status: Chronic Current Visit: No Code(s): E03.9 - Hypothyroidism, unspecified (5) Diabetes mellitus Status: Chronic Current Visit: Yes Qualifiers: Diabetes mellitus type: type 2 Code(s): E11.9 - Type 2 diabetes mellitus without complications (6) Renal insufficiency Status: Chronic Current Visit: No Code(s): N28.9 - Disorder of kidney and ureter, unspecified (7) Gout Status: Chronic Current Visit: No Code(s): M10.9 - Gout, unspecified (8) Hyperlipidemia Status: Chronic Current Visit: No Code(s): E78.5 - Hyperlipidemia, unspecified (9) GERD (gastroesophageal reflux disease) Status: Chronic Current Visit: No Code(s): K21.9 - Gastro-esophageal reflux disease without esophagitis (10) Obesity (BMI 30.0-34.9) Status: Chronic Current Visit: No Code(s): E66.9 - Obesity, unspecified History of Present Illness Date of Service: 02/10/18 Chief Complaint: Stage II pressure ulceration of the coccygeal region History of Wound: This is an 82-year-old female who was recently hospitalized at [facility], and underwent left intramedullary rodding of a left hip fracture on December 08, 2017. Postoperatively, she developed a pressure ulceration of the coccyx, which was noted on December 15, 2017. The patient is now ambulatory, though requires the use of a walker. She sleeps on a flat mattress at night. Because of her recent surgery on the left hip, she is unable to lay on her left side in the left lateral decubitus position. Recently, management has been by means of offloading measures, and the use of collagenase Santyl applied topically on a daily basis. Past Medical History Past Medical History: Chronic Problems Pressure ulcer of coccygeal region, stage 2 (Chronic) CAD (coronary artery disease) (Chronic) Lymphedema (Chronic) Hypothyroidism (Chronic) Diabetes mellitus (Chronic) Renal insufficiency (Chronic) Gout (Chronic) Hyperlipidemia (Chronic) GERD (gastroesophageal reflux disease) (Chronic) Obesity (BMI 30.0-34.9) (Chronic) Surgical History: - - Patient underwent hysterectomy in 1969. Bladder suspension was performed in 1962. Patient is undergone rotator cuff surgery on the right twice. She is undergone lumbar surgery in 1983. She has had bilateral cataract surgery. Right inguinal hernia repair was performed in the past. She underwent left intramedullary rodding on December 08, 2017. Allergies/Adverse Reactions: Allergies cefuroxime [From Ceftin] Allergy (Verified 12/30/17 16:25) Rash codeine Allergy (Verified 12/30/17 16:25) Rash erythromycin base Allergy (Verified 12/30/17 16:25) Rash Penicillins Allergy (Verified 12/30/17 16:25) Rash Home Medications: Ambulatory Orders Medication Instructions Recorded Acetaminophen [Tylenol] 650 mg PO 5X/DAY 12/30/17 Aspirin [Adult Low Dose Aspirin EC] 81 mg PO DAILY 12/30/17 Atorvastatin Calcium [Lipitor] 10 mg PO QHS 12/30/17 Celecoxib [Celebrex] 200 mg PO DAILY PRN PRN 12/30/17 Cholecalciferol (Vitamin D3) 1,000 unit PO BID 12/30/17 [Vitamin D3] Colestipol Tablet [Colestid Tablet] 1 gm PO DAILY 12/30/17 Febuxostat [Uloric] 40 mg PO DAILY 12/30/17 Furosemide [Lasix] 40 mg PO DAILY 12/30/17 Insulin Glargine,Hum.rec.anlog 35 unit SQ DAILY 12/30/17 [Lantus] Insulin Lispro [Humalog Kwikpen] 10 - 15 unit SQ 4X/DAY 12/30/17 Insulin Lispro [Humalog] 40 unit SQ DAILY 12/30/17 Levothyroxine [Synthroid] 112 mcg PO DAILY 12/30/17 Metolazone [Zaroxolyn] 5 mg PO QODAY 12/30/17 Multivitamin/Iron/Folic Acid 1 each PO DAILY 12/30/17 [Centrum Adults Tablet] Nitroglycerin 0.4 mg SL PRN PRN 12/30/17 Oxycodone [Oxyir] 5 mg PO Q6H PRN PRN 12/30/17 Potassium Chloride [Klor-Con 10] 10 meq PO QODAY 12/30/17 Ranitidine [Zantac] 150 mg PO DAILY PRN 12/30/17 Sotalol HCl [Betapace AF (Beta 40 mg PO DAILY 12/30/17 Jim)] - Family History Paternal - - The patient's father at the age of 88 with a history of cerebrovascular accident. Patient's mother at age of 85 with a history of coronary artery disease and dementia. Smoking Status: Never smoker Tobacco Use: Non-smoker Review of Systems Constitutional: Denies: Chills, Fever, Weight Change Eyes: Denies: Pain, Vision Change HEENT: Denies: Difficulty Hearing, Difficulty Swallowing, Sinus Congestion Cardiovascular: Denies: Chest Pain, Palpitations Respiratory: Denies: Cough, Shortness of Breath Gastrointestinal: Denies: Diarrhea, Nausea, Vomiting Genitourinary: Denies: Dysuria, Hematuria Endocrine: Denies: Heat/ Cold Intolerance, Polydipsia, Polyuria Hematologic/ Lymphatic: Denies: Easy Bruising, Easy Bleeding - Physical Exam Vital Signs Temp Pulse Resp BP 97.3 F L 74 18 132/58 H 02/10/18 08:21 02/10/18 08:21 02/10/18 08:21 02/10/18 08:21 General: Alert, Oriented x3, Cooperative, No apparent distress, Well developed, Well nourished HEENT: Atraumatic, PERRLA, EOMI, Normocephalic Oral: Moist Mucosa Neck: No JVD Lungs: Normal air movement Abdomen: Non-Distended Extremities: No clubbing, No cyanosis, No edema, No Calf Tenderness Skin: No rashes, - - The pressure ulceration the sacrococcygeal region is much smaller in size. Dimensions are documented elsewhere. There is evidence of peripheral epithelialization. There is only minimal bioburden. Dimensions are documented elsewhere. Wound Measurements and Assessment WC - Nurse 1 - General Ulcer Measurement Start: 01/27/18 08:40 Freq: Status: Active Protocol: Activity Type Activity Date Activity User E-Sign Co-Sign Detail Recorded Client Recorded Date Recorded By Document 02/10/18 08:21 [id number] 02/10/18 08:28 02/10/18 08:21 Wound Center Nurse 1 [Ulcer Assessment] #1 coccyx -Combined with other wound No -Current Size (cm) - Length 0.1 -Current Size (cm) - Width 0.1 -Current Size (cm) - Depth 0.1 -Total Square Cm 0.01 -Photo Taken No -Epithelialization Large 67-100% -Tunneling No -Undermining/Tunneling No -Circular Undermining No -Exudate Amt None Present (0 %) -Wound Margin Flat & Intact -Granulation Amt Large (67-100%) -Granulation Quality Red -Slough/Fibrin Yes -Necrosis Amt Small (1-33%) -Necrotic Tissue Type Adherent Slough -Structure Exposed N/A -Texture (Carol-wound Skin Appearance) Assessed Scarring -Moisture (Carol-wound Skin Appearance Assessed ) Dry/Scaly -Color (Carol-wound Skin Appearance) Assessed -Temperature (Carol-wound Skin No Abnormality Appearance) (Pt Warm) -Tenderness on Palpation (Carol-wound No Skin Appearance) -Ulcer Cleansing Rinsed/ Irrigated with Saline -Foul Odor after Cleansing No -Anesthetic Used 4% Lidocaine Solution [Edema Assessment] -Lower Limb Edema Present NA Neurological: Cranial nerves II-XII grossly intact, Neuro grossly intact Psych/Mental Status: Normal Affect, Appropriate, Alert and oriented to time, place, person, mood and affect Debridement Note Post-Debridement Measurements/Treatment WC - Nurse 2 - General Ulcer CM Notes Start: 01/27/18 08:40 Freq: Status: Active Protocol: Activity Type Activity Date Activity User E-Sign Co-Sign Detail Recorded Client Recorded Date Recorded By Document 01/27/18 08:53 [id number] 01/27/18 08:59 Document 02/03/18 08:56 [id number] 02/03/18 08:58 JS 01/27/18 02/03/18 08:53 08:56 Wound Center Nurse 2 #1 coccyx -Time 08:57 08:56 -Correct Patient Yes Yes -Correct Side, Site, Position Yes Yes -Correct Procedure Yes Yes -Procedure Performed Yes Yes -Type of Procedure Debridement Debridement -Clinical Debridement Subcutaneous Subcutaneous -Post Debridement Size (cm) - Length 0.8 1.0 -Post Debridement Size (cm) - Width 0.2 0.2 -Post Debridement Size (cm) - Depth 0.1 0.1 -Total Square Cm 0.16 0.20 -Wound/Ulcer Outcome Not Healed Not Healed -Ulcer Cleansing Not Cleansed Rinsed/ Irrigated with Saline -Foul Odor after Cleansing No No -Bioengineered Tissue No No -Topical Lidocaine (%) 5 4 -Lidocaine (ml) 5 -Bleeding Controlled with NA NA -Treatment Response Procedure Procedure Tolerated Well Tolerated Well Pain Scale: 0-10 Numeric Is Patient Pain Free? Yes Yes Laterality: Not Applicable - Sacrococcygeal pressure ulceration Type of Debridement: Excisional debridement Anesthesia Used: 4% Lidocaine Solution Depth: Down to and including healthy tissue, in the subcutaneous layer Percentage of wound debrided: 100 Instrument Used: 5mm curette Severity: Fat Layer Exposed Amount of bleeding with debridement: Mild Bleeding Controlled with: Compression and gauze Patient tolerated procedure well Assessment/Plan Active Problems Pressure ulcer of coccygeal region, stage 2 (Chronic) Diabetes mellitus (Chronic) Assessment: This is an 82-year-old female recently hospitalized for left intramedullary rodding secondary to a traumatic fracture. As result, she has developed a stage II pressure ulceration of the coccygeal region. Her other medical problems are documented above. There has been decrease in the size of the coccygeal ulceration, with increasing areas of pink healthy granulation tissue. Good progress toward healing has been noted in recent weeks. We have obtained recent laboratory results from [facility], dated 12/20/2017. Results were as follows: White blood count 8.6, hemoglobin 10.7, hematocrit 32.2, platelets 336,000, glucose 105, sodium 140, potassium 3.2, chloride 97, BUN 54.3, creatinine 1.8. Plan: Offloading measures are to be continued. These measures have been discussed with the patient and her daughter, who is at the bedside. We have recommended a low air loss mattress, which may be difficult for the patient, as she is short, and it may preclude her from actually placing herself within her bed. We have also provided a prescription for a gel cushion, receipt of which is awaited. Enhanced nutrition and protein intake have been recommended. The patient is taking nutritional supplements. Optimization of the patient's diabetes has been recommended. Weekly mechanical debridements have been implemented, and are anticipated to continue. We are to continue local care using collagenase Santyl applied topically on a daily basis. The patient and her daughter have been advised to assure that gauze contacts the wound bed as much as possible, given that the ulceration is well within the cleft of her buttocks. She will return in 1 week for reassessment. The patient is not a smoker. Influenza vaccine was not administered today. Patient weighs 179 pounds. She stands 5 feet 1 inches tall. Her BMI is 33.8, which places her in a class II category. Weight loss has been recommended, and she has been advised to collaborate with her primary care physician in this regard.
--- NOTE | 2018-02-10 08:56 | HP.PCM_ITS ---
(1) Pressure ulcer of coccygeal region, stage 2 Status: Chronic Current Visit: Yes Code(s): L89.152 - Pressure ulcer of sacral region, stage 2 (2) CAD (coronary artery disease) Status: Chronic Current Visit: No Qualifiers: Coronary Disease-Associated Artery/Lesion type: [place] artery [place] vs. transplanted heart: [place] heart Code(s): I25.10 - Atherosclerotic heart disease of [place] coronary artery without angina pectoris (3) Lymphedema Status: Chronic Current Visit: No Code(s): I89.0 - Lymphedema, not elsewhere classified (4) Hypothyroidism Status: Chronic Current Visit: No Code(s): E03.9 - Hypothyroidism, unspecified (5) Diabetes mellitus Status: Chronic Current Visit: Yes Qualifiers: Diabetes mellitus type: type 2 Code(s): E11.9 - Type 2 diabetes mellitus without complications (6) Renal insufficiency Status: Chronic Current Visit: No Code(s): N28.9 - Disorder of kidney and ureter, unspecified (7) Gout Status: Chronic Current Visit: No Code(s): M10.9 - Gout, unspecified (8) Hyperlipidemia Status: Chronic Current Visit: No Code(s): E78.5 - Hyperlipidemia, unspecified (9) GERD (gastroesophageal reflux disease) Status: Chronic Current Visit: No Code(s): K21.9 - Gastro-esophageal reflux disease without esophagitis (10) Obesity (BMI 30.0-34.9) Status: Chronic Current Visit: No Code(s): E66.9 - Obesity, unspecified History of Present Illness Date of Service: 02/10/18 Chief Complaint: Stage II pressure ulceration of the coccygeal region History of Wound: This is an 82-year-old female who was recently hospitalized at [facility], and underwent left intramedullary rodding of a left hip fracture on December 08, 2017. Postoperatively, she developed a pressure ulceration of the coccyx, which was noted on December 15, 2017. The patient is now ambulatory, though requires the use of a walker. She sleeps on a flat mattress at night. Because of her recent surgery on the left hip, she is unable to lay on her left side in the left lateral decubitus position. Recently , management has been by means of offloading measures, and the use of collagenase Santyl applied topically on a daily basis. Past Medical History Past Medical History: Chronic Problems Pressure ulcer of coccygeal region, stage 2 (Chronic) CAD (coronary artery disease) (Chronic) Lymphedema (Chronic) Hypothyroidism (Chronic) Diabetes mellitus (Chronic) Renal insufficiency (Chronic) Gout (Chronic) Hyperlipidemia (Chronic) GERD (gastroesophageal reflux disease) (Chronic) Obesity (BMI 30.0-34.9) (Chronic) Surgical History: - - Patient underwent hysterectomy in 1969. Bladder suspension was performed in 1962. Patient is undergone rotator cuff surgery on the right twice. She is undergone lumbar surgery in 1983. She has had bilateral cataract surgery. Right inguinal hernia repair was performed in the past. She underwent left intramedullary rodding on December 08, 2017. Allergies/Adverse Reactions: Allergies cefuroxime [From Ceftin] Allergy (Verified 12/30/17 16:25) Rash codeine Allergy (Verified 12/30/17 16:25) Rash erythromycin base Allergy (Verified 12/30/17 16:25) Rash Penicillins Allergy (Verified 12/30/17 16:25) Rash Home Medications: Ambulatory Orders Medication Instructions Recorded Acetaminophen [Tylenol] 650 mg PO 5X/DAY 12/30/17 Aspirin [Adult Low Dose Aspirin EC] 81 mg PO DAILY 12/30/17 Atorvastatin Calcium [Lipitor] 10 mg PO QHS 12/30/17 Celecoxib [Celebrex] 200 mg PO DAILY PRN PRN 12/30/17 Cholecalciferol (Vitamin D3) 1,000 unit PO BID 12/30/17 [Vitamin D3] Colestipol Tablet [Colestid Tablet] 1 gm PO DAILY 12/30/17 Febuxostat [Uloric] 40 mg PO DAILY 12/30/17 Furosemide [Lasix] 40 mg PO DAILY 12/30/17 Insulin Glargine,Hum.rec.anlog 35 unit SQ DAILY 12/30/17 [Lantus] Insulin Lispro [Humalog Kwikpen] 10 - 15 unit SQ 4X/DAY 12/30/17 Insulin Lispro [Humalog] 40 unit SQ DAILY 12/30/17 Levothyroxine [Synthroid] 112 mcg PO DAILY 12/30/17 Metolazone [Zaroxolyn] 5 mg PO QODAY 12/30/17 Multivitamin/Iron/Folic Acid 1 each PO DAILY 12/30/17 [Centrum Adults Tablet] Nitroglycerin 0.4 mg SL PRN PRN 12/30/17 Oxycodone [Oxyir] 5 mg PO Q6H PRN PRN 12/30/17 Potassium Chloride [Klor-Con 10] 10 meq PO QODAY 12/30/17 Ranitidine [Zantac] 150 mg PO DAILY PRN 12/30/17 Sotalol HCl [Betapace AF (Beta 40 mg PO DAILY 12/30/17 Jim)] - Family History Paternal - - The patient's father at the age of 88 with a history of cerebrovascular accident. Patient's mother at age of 85 with a history of coronary artery disease and dementia. Smoking Status: Never smoker Tobacco Use: Non-smoker Review of Systems Constitutional: Denies: Chills, Fever, Weight Change Eyes: Denies: Pain, Vision Change HEENT: Denies: Difficulty Hearing, Difficulty Swallowing, Sinus Congestion Cardiovascular: Denies: Chest Pain, Palpitations Respiratory: Denies: Cough, Shortness of Breath Gastrointestinal: Denies: Diarrhea, Nausea, Vomiting Genitourinary: Denies: Dysuria, Hematuria Endocrine: Denies: Heat/ Cold Intolerance, Polydipsia, Polyuria Hematologic/ Lymphatic: Denies: Easy Bruising, Easy Bleeding - Physical Exam Vital Signs Temp Pulse Resp BP 97.3 F L 74 18 132/58 H 02/10/18 08:21 02/10/18 08:21 02/10/18 08:21 02/10/18 08:21 General: Alert, Oriented x3, Cooperative, No apparent distress, Well developed, Well nourished HEENT: Atraumatic, PERRLA, EOMI, Normocephalic Oral: Moist Mucosa Neck: No JVD Lungs: Normal air movement Abdomen: Non-Distended Extremities: No clubbing, No cyanosis, No edema, No Calf Tenderness Skin: No rashes, - - The pressure ulceration the sacrococcygeal region is much smaller in size. Dimensions are documented elsewhere. There is evidence of peripheral epithelialization. There is only minimal bioburden. Dimensions are documented elsewhere. Wound Measurements and Assessment WC - Nurse 1 - General Ulcer Measurement Start: 01/27/18 08:40 Freq: Status: Active Protocol: Activity Type Activity Date Activity User E-Sign Co-Sign Detail Recorded Client Recorded Date Recorded By Document 02/10/18 08:21 [id number] 02/10/18 08:28 02/10/18 08:21 Wound Center Nurse 1 [Ulcer Assessment] #1 coccyx -Combined with other wound No -Current Size (cm) - Length 0.1 -Current Size (cm) - Width 0.1 -Current Size (cm) - Depth 0.1 -Total Square Cm 0.01 -Photo Taken No -Epithelialization Large 67-100% -Tunneling No -Undermining/Tunneling No -Circular Undermining No -Exudate Amt None Present (0 %) -Wound Margin Flat & Intact -Granulation Amt Large (67-100%) -Granulation Quality Red -Slough/Fibrin Yes -Necrosis Amt Small (1-33%) -Necrotic Tissue Type Adherent Slough -Structure Exposed N/A -Texture (Carol-wound Skin Appearance) Assessed Scarring -Moisture (Carol-wound Skin Appearance Assessed ) Dry/Scaly -Color (Carol-wound Skin Appearance) Assessed -Temperature (Carol-wound Skin No Abnormality Appearance) (Pt Warm) -Tenderness on Palpation (Carol-wound No Skin Appearance) -Ulcer Cleansing Rinsed/ Irrigated with Saline -Foul Odor after Cleansing No -Anesthetic Used 4% Lidocaine Solution [Edema Assessment] -Lower Limb Edema Present NA Neurological: Cranial nerves II-XII grossly intact, Neuro grossly intact Psych/Mental Status: Normal Affect, Appropriate, Alert and oriented to time, place, person, mood and affect Debridement Note Post-Debridement Measurements/Treatment WC - Nurse 2 - General Ulcer CM Notes Start: 01/27/18 08:40 Freq: Status: Active Protocol: Activity Type Activity Date Activity User E-Sign Co-Sign Detail Recorded Client Recorded Date Recorded By Document 01/27/18 08:53 [id number] 01/27/18 08:59 Document 02/03/18 08:56 [id number] 02/03/18 08:58 JS 01/27/18 02/03/18 08:53 08:56 Wound Center Nurse 2 #1 coccyx -Time 08:57 08:56 -Correct Patient Yes Yes -Correct Side, Site, Position Yes Yes -Correct Procedure Yes Yes -Procedure Performed Yes Yes -Type of Procedure Debridement Debridement -Clinical Debridement Subcutaneous Subcutaneous -Post Debridement Size (cm) - Length 0.8 1.0 -Post Debridement Size (cm) - Width 0.2 0.2 -Post Debridement Size (cm) - Depth 0.1 0.1 -Total Square Cm 0.16 0.20 -Wound/Ulcer Outcome Not Healed Not Healed -Ulcer Cleansing Not Cleansed Rinsed/ Irrigated with Saline -Foul Odor after Cleansing No No -Bioengineered Tissue No No -Topical Lidocaine (%) 5 4 -Lidocaine (ml) 5 -Bleeding Controlled with NA NA -Treatment Response Procedure Procedure Tolerated Well Tolerated Well Pain Scale: 0-10 Numeric Is Patient Pain Free? Yes Yes Laterality: Not Applicable - Sacrococcygeal pressure ulceration Type of Debridement: Excisional debridement Anesthesia Used: 4% Lidocaine Solution Depth: Down to and including healthy tissue, in the subcutaneous layer Percentage of wound debrided: 100 Instrument Used: 5mm curette Severity: Fat Layer Exposed Amount of bleeding with debridement: Mild Bleeding Controlled with: Compression and gauze Patient tolerated procedure well Assessment/Plan Active Problems Pressure ulcer of coccygeal region, stage 2 (Chronic) Diabetes mellitus (Chronic) Assessment: This is an 82-year-old female recently hospitalized for left intramedullary rodding secondary to a traumatic fracture. As result, she has developed a stage II pressure ulceration of the coccygeal region. Her other medical problems are documented above. There has been decrease in the size of the coccygeal ulceration, with increasing areas of pink healthy granulation tissue. Good progress toward healing has been noted in recent weeks. We have obtained recent laboratory results from [facility], dated 2017. Results were as follows: White blood count 8.6, hemoglobin 10.7, hematocrit 32.2, platelets 336,000, glucose 105, sodium 140, potassium 3.2, chloride 97, BUN 54.3, creatinine 1.8. Plan: Offloading measures are to be continued. These measures have been discussed with the patient and her daughter, who is at the bedside. We have recommended a low air loss mattress, which may be difficult for the patient, as she is short, and it may preclude her from actually placing herself within her bed. We have also provided a prescription for a gel cushion, receipt of which is awaited. Enhanced nutrition and protein intake have been recommended. The patient is taking nutritional supplements. Optimization of the patient's diabetes has been recommended. Weekly mechanical debridements have been implemented, and are anticipated to continue. We are to continue local care using collagenase Santyl applied topically on a daily basis. The patient and her daughter have been advised to assure that gauze contacts the wound bed as much as possible, given that the ulceration is well within the cleft of her buttocks. She will return in 1 week for reassessment. The patient is not a smoker. Influenza vaccine was not administered today. Patient weighs 179 pounds. She stands 5 feet 1 inches tall. Her BMI is 33.8, which places her in a class II category. Weight loss has been recommended, and she has been advised to collaborate with her primary care physician in this regard.
[2018-02-17 08:23] VITALS: BP 130/62; PULSE 75; RESP 18; TEMP 36.4
--- NOTE | 2018-02-17 08:49 | PCM.WC.HP ---
(1) Pressure ulcer of coccygeal region, stage 2 Status: Chronic Current Visit: Yes Code(s): L89.152 - Pressure ulcer of sacral region, stage 2 (2) CAD (coronary artery disease) Status: Chronic Current Visit: No Qualifiers: Coronary Disease-Associated Artery/Lesion type: [place] artery [place] vs. transplanted heart: [place] heart Code(s): I25.10 - Atherosclerotic heart disease of [place] coronary artery without angina pectoris (3) Lymphedema Status: Chronic Current Visit: No Code(s): I89.0 - Lymphedema, not elsewhere classified (4) Hypothyroidism Status: Chronic Current Visit: No Code(s): E03.9 - Hypothyroidism, unspecified (5) Diabetes mellitus Status: Chronic Current Visit: Yes Qualifiers: Diabetes mellitus type: type 2 Code(s): E11.9 - Type 2 diabetes mellitus without complications (6) Renal insufficiency Status: Chronic Current Visit: No Code(s): N28.9 - Disorder of kidney and ureter, unspecified (7) Gout Status: Chronic Current Visit: No Code(s): M10.9 - Gout, unspecified (8) Hyperlipidemia Status: Chronic Current Visit: No Code(s): E78.5 - Hyperlipidemia, unspecified (9) GERD (gastroesophageal reflux disease) Status: Chronic Current Visit: No Code(s): K21.9 - Gastro-esophageal reflux disease without esophagitis (10) Obesity (BMI 30.0-34.9) Status: Chronic Current Visit: No Code(s): E66.9 - Obesity, unspecified History of Present Illness Date of Service: 02/17/18 Chief Complaint: Stage II pressure ulceration of the coccygeal region History of Wound: This is an 82-year-old female who was recently hospitalized at [facility], and underwent left intramedullary rodding of a left hip fracture on December 08, 2017. Postoperatively, she developed a pressure ulceration of the coccyx, which was noted on December 15, 2017. The patient is now ambulatory, though requires the use of a walker. She sleeps on a flat mattress at night. Because of her recent surgery on the left hip, she is unable to lay on her left side in the left lateral decubitus position. Recently, management has been by means of offloading measures, and the use of collagenase Santyl applied topically on a daily basis. Past Medical History Past Medical History: Chronic Problems Pressure ulcer of coccygeal region, stage 2 (Chronic) CAD (coronary artery disease) (Chronic) Lymphedema (Chronic) Hypothyroidism (Chronic) Diabetes mellitus (Chronic) Renal insufficiency (Chronic) Gout (Chronic) Hyperlipidemia (Chronic) GERD (gastroesophageal reflux disease) (Chronic) Obesity (BMI 30.0-34.9) (Chronic) Surgical History: - - Patient underwent hysterectomy in 1969. Bladder suspension was performed in 1962. Patient is undergone rotator cuff surgery on the right twice. She is undergone lumbar surgery in 1983. She has had bilateral cataract surgery. Right inguinal hernia repair was performed in the past. She underwent left intramedullary rodding on December 08, 2017. Allergies/Adverse Reactions: Allergies cefuroxime [From Ceftin] Allergy (Verified 12/30/17 16:25) Rash codeine Allergy (Verified 12/30/17 16:25) Rash erythromycin base Allergy (Verified 12/30/17 16:25) Rash Penicillins Allergy (Verified 12/30/17 16:25) Rash Home Medications: Ambulatory Orders Medication Instructions Recorded Acetaminophen [Tylenol] 650 mg PO 5X/DAY 12/30/17 Aspirin [Adult Low Dose Aspirin EC] 81 mg PO DAILY 12/30/17 Atorvastatin Calcium [Lipitor] 10 mg PO QHS 12/30/17 Celecoxib [Celebrex] 200 mg PO DAILY PRN PRN 12/30/17 Cholecalciferol (Vitamin D3) 1,000 unit PO BID 12/30/17 [Vitamin D3] Colestipol Tablet [Colestid Tablet] 1 gm PO DAILY 12/30/17 Febuxostat [Uloric] 40 mg PO DAILY 12/30/17 Furosemide [Lasix] 40 mg PO DAILY 12/30/17 Insulin Glargine,Hum.rec.anlog 35 unit SQ DAILY 12/30/17 [Lantus] Insulin Lispro [Humalog Kwikpen] 10 - 15 unit SQ 4X/DAY 12/30/17 Insulin Lispro [Humalog] 40 unit SQ DAILY 12/30/17 Levothyroxine [Synthroid] 112 mcg PO DAILY 12/30/17 Metolazone [Zaroxolyn] 5 mg PO QODAY 12/30/17 Multivitamin/Iron/Folic Acid 1 each PO DAILY 12/30/17 [Centrum Adults Tablet] Nitroglycerin 0.4 mg SL PRN PRN 12/30/17 Oxycodone [Oxyir] 5 mg PO Q6H PRN PRN 12/30/17 Potassium Chloride [Klor-Con 10] 10 meq PO QODAY 12/30/17 Ranitidine [Zantac] 150 mg PO DAILY PRN 12/30/17 Sotalol HCl [Betapace AF (Beta 40 mg PO DAILY 12/30/17 Jim)] - Family History Paternal - - The patient's father at the age of 88 with a history of cerebrovascular accident. Patient's mother at age of 85 with a history of coronary artery disease and dementia. Smoking Status: Never smoker Tobacco Use: Non-smoker Review of Systems Constitutional: Denies: Chills, Fever, Weight Change Eyes: Denies: Pain, Vision Change HEENT: Denies: Difficulty Hearing, Difficulty Swallowing, Sinus Congestion Cardiovascular: Denies: Chest Pain, Palpitations Respiratory: Denies: Cough, Shortness of Breath Gastrointestinal: Denies: Diarrhea, Nausea, Vomiting Genitourinary: Denies: Dysuria, Hematuria Endocrine: Denies: Heat/ Cold Intolerance, Polydipsia, Polyuria Hematologic/ Lymphatic: Denies: Easy Bruising, Easy Bleeding - Physical Exam Vital Signs Temp Pulse Resp BP 97.5 F L 75 18 130/62 H 02/17/18 08:23 02/17/18 08:23 02/17/18 08:23 02/17/18 08:23 General: Alert, Oriented x3, Cooperative, No apparent distress, Well developed, Well nourished HEENT: Atraumatic, PERRLA, EOMI, Normocephalic Oral: Moist Mucosa Neck: No JVD Lungs: Normal air movement Abdomen: Non-Distended Extremities: No clubbing, No cyanosis, No edema Skin: No rashes, No breakdown, - - The patient's sacrococcygeal pressure ulceration is now completely healed. It has completely epithelialized. There is no breakdown, erythema, etc. Wound Measurements and Assessment WC - Nurse 1 - General Ulcer Measurement Start: 01/27/18 08:40 Freq: Status: Active Protocol: Activity Type Activity Date Activity User E-Sign Co-Sign Detail Recorded Client Recorded Date Recorded By Document 02/17/18 08:23 DL [id number] 02/17/18 08:30 DL 02/17/18 08:23 Wound Center Nurse 1 [Ulcer Assessment] #1 coccyx -Current Size (cm) - Length 0 -Current Size (cm) - Width 0 -Current Size (cm) - Depth 0 -Total Square Cm 0 -Photo Taken Yes -Exudate Amt None Present (0 %) -Wound Margin Flat & Intact -Granulation Amt Small (1-33%) -Granulation Quality [place] -Necrosis Amt None Present (0 %) -Structure Exposed N/A -Texture (Carol-wound Skin Appearance) Scarring -Moisture (Carol-wound Skin Appearance No Abnormality ) -Color (Carol-wound Skin Appearance) No Abnormality -Temperature (Carol-wound Skin No Abnormality Appearance) (Pt Warm) -Ulcer Cleansing Rinsed/ Irrigated with Saline -Foul Odor after Cleansing No WC - Nurse 2 - General Ulcer CM Notes Start: 01/27/18 08:40 Freq: Status: Active Protocol: Activity Type Activity Date Activity User E-Sign Co-Sign Detail Recorded Client Recorded Date Recorded By Document 02/17/18 08:41 [id number] 02/17/18 08:44 02/17/18 08:41 Wound Center Nurse 2 [Procedure/Treatment] -Time 08:41 -Correct Patient Yes -Correct Side, Site, Position Yes -Correct Procedure Yes -Procedure Performed No -Post Debridement Size (cm) - Length 0 -Post Debridement Size (cm) - Width 0 -Post Debridement Size (cm) - Depth 0 -Total Square Cm 0 -Wound/Ulcer Outcome Healed- Epithelialized -Ulcer Cleansing Not Cleansed -Foul Odor after Cleansing No -Bioengineered Tissue No -Bleeding Controlled with NA [See Physician Procedure note for Specifics] Pain Scale: 0-10 Numeric [Pain] -Is Patient Pain Free? Yes Neurological: Cranial nerves II-XII grossly intact, Neuro grossly intact Psych/Mental Status: Normal Affect, Appropriate, Alert and oriented to time, place, person, mood and affect Debridement Note Post-Debridement Measurements/Treatment WC - Nurse 2 - General Ulcer CM Notes Start: 01/27/18 08:40 Freq: Status: Active Protocol: Activity Type Activity Date Activity User E-Sign Co-Sign Detail Recorded Client Recorded Date Recorded By Document 01/27/18 08:53 [id number] 01/27/18 08:59 Document 02/03/18 08:56 JS [id number] 02/03/18 08:58 JS Document 02/10/18 08:53 [id number] 02/10/18 08:55 Document 02/17/18 08:41 JS [id number] 02/17/18 08:44 JS 01/27/18 02/03/18 02/10/18 08:53 08:56 08:53 Wound Center Nurse 2 #1 coccyx -Time 08:57 08:56 08:54 -Correct Patient Yes Yes Yes -Correct Side, Site, Position Yes Yes Yes -Correct Procedure Yes Yes Yes -Procedure Performed Yes Yes Yes -Type of Procedure Debridement Debridement Debridement -Clinical Debridement Subcutaneous Subcutaneous Subcutaneous -Post Debridement Size (cm) - Length 0.8 1.0 0.5 -Post Debridement Size (cm) - Width 0.2 0.2 0.3 -Post Debridement Size (cm) - Depth 0.1 0.1 0.1 -Total Square Cm 0.16 0.20 0.15 -Wound/Ulcer Outcome Not Healed Not Healed Not Healed -Ulcer Cleansing Not Cleansed Rinsed/ Not Cleansed Irrigated with Saline -Foul Odor after Cleansing No No No -Bioengineered Tissue No No No -Topical Lidocaine (%) 5 4 4 -Lidocaine (ml) 5 5 -Bleeding Controlled with NA NA NA -Treatment Response Procedure Procedure Procedure Tolerated Well Tolerated Well Tolerated Well Pain Scale: 0-10 Numeric Is Patient Pain Free? Yes Yes Yes 02/17/18 08:41 Wound Center Nurse 2 #1 coccyx -Time 08:41 -Correct Patient Yes -Correct Side, Site, Position Yes -Correct Procedure Yes -Procedure Performed No -Type of Procedure -Clinical Debridement -Post Debridement Size (cm) - Length 0 -Post Debridement Size (cm) - Width 0 -Post Debridement Size (cm) - Depth 0 -Total Square Cm 0 -Wound/Ulcer Outcome Healed- Epithelialized -Ulcer Cleansing Not Cleansed -Foul Odor after Cleansing No -Bioengineered Tissue No -Topical Lidocaine (%) -Lidocaine (ml) -Bleeding Controlled with NA -Treatment Response Pain Scale: 0-10 Numeric Is Patient Pain Free? Yes No debridement was completed today Assessment/Plan Active Problems Pressure ulcer of coccygeal region, stage 2 (Chronic) Diabetes mellitus (Chronic) Assessment: This is an 82-year-old female recently hospitalized for left intramedullary rodding secondary to a traumatic fracture. As result, she has developed a stage II pressure ulceration of the coccygeal region. Her other medical problems are documented above. There has been decrease in the size of the coccygeal ulceration, with increasing areas of pink healthy granulation tissue. Good progress toward healing has been noted in recent weeks. As of today, the patient's coccygeal wound is now completely healed. We have obtained recent laboratory results from [facility], dated 12/20/2017. Results were as follows: White blood count 8.6, hemoglobin 10.7, hematocrit 32.2, platelets 336,000, glucose 105, sodium 140, potassium 3.2, chloride 97, BUN 54.3, creatinine 1.8. Plan: The patient is now healed her sacrococcygeal pressure ulcer. She is to be discharged, with follow-up henceforth on an as-needed basis. Offloading measures are to be continued. These measures have been discussed with the patient and her daughter, who is at the bedside. The patient has also been advised to remain active, and to elevate her lower extremities as much as possible, even during daytime hours, to avoid issues related to swelling or edema in the lower extremities in the future. The patient has done well, and is now completely healed. The patient is not a smoker. Influenza vaccine was not administered today. Patient weighs 179 pounds. She stands 5 feet 1 inches tall. Her BMI is 33.8, which places her in a class II category. Weight loss has been recommended, and she has been advised to collaborate with her primary care physician in this regard.
--- NOTE | 2018-02-17 08:54 | HP.PCM_ITS ---
(1) Pressure ulcer of coccygeal region, stage 2 Status: Chronic Current Visit: Yes Code(s): L89.152 - Pressure ulcer of sacral region, stage 2 (2) CAD (coronary artery disease) Status: Chronic Current Visit: No Qualifiers: Coronary Disease-Associated Artery/Lesion type: [place] artery [place] vs. transplanted heart: [place] heart Code(s): I25.10 - Atherosclerotic heart disease of [place] coronary artery without angina pectoris (3) Lymphedema Status: Chronic Current Visit: No Code(s): I89.0 - Lymphedema, not elsewhere classified (4) Hypothyroidism Status: Chronic Current Visit: No Code(s): E03.9 - Hypothyroidism, unspecified (5) Diabetes mellitus Status: Chronic Current Visit: Yes Qualifiers: Diabetes mellitus type: type 2 Code(s): E11.9 - Type 2 diabetes mellitus without complications (6) Renal insufficiency Status: Chronic Current Visit: No Code(s): N28.9 - Disorder of kidney and ureter, unspecified (7) Gout Status: Chronic Current Visit: No Code(s): M10.9 - Gout, unspecified (8) Hyperlipidemia Status: Chronic Current Visit: No Code(s): E78.5 - Hyperlipidemia, unspecified (9) GERD (gastroesophageal reflux disease) Status: Chronic Current Visit: No Code(s): K21.9 - Gastro-esophageal reflux disease without esophagitis (10) Obesity (BMI 30.0-34.9) Status: Chronic Current Visit: No Code(s): E66.9 - Obesity, unspecified History of Present Illness Date of Service: 02/17/18 Chief Complaint: Stage II pressure ulceration of the coccygeal region History of Wound: This is an 82-year-old female who was recently hospitalized at [facility], and underwent left intramedullary rodding of a left hip fracture on December 08, 2017. Postoperatively, she developed a pressure ulceration of the coccyx, which was noted on December 15, 2017. The patient is now ambulatory, though requires the use of a walker. She sleeps on a flat mattress at night. Because of her recent surgery on the left hip, she is unable to lay on her left side in the left lateral decubitus position. Recently , management has been by means of offloading measures, and the use of collagenase Santyl applied topically on a daily basis. Past Medical History Past Medical History: Chronic Problems Pressure ulcer of coccygeal region, stage 2 (Chronic) CAD (coronary artery disease) (Chronic) Lymphedema (Chronic) Hypothyroidism (Chronic) Diabetes mellitus (Chronic) Renal insufficiency (Chronic) Gout (Chronic) Hyperlipidemia (Chronic) GERD (gastroesophageal reflux disease) (Chronic) Obesity (BMI 30.0-34.9) (Chronic) Surgical History: - - Patient underwent hysterectomy in 1969. Bladder suspension was performed in 1962. Patient is undergone rotator cuff surgery on the right twice. She is undergone lumbar surgery in 1983. She has had bilateral cataract surgery. Right inguinal hernia repair was performed in the past. She underwent left intramedullary rodding on December 08, 2017. Allergies/Adverse Reactions: Allergies cefuroxime [From Ceftin] Allergy (Verified 12/30/17 16:25) Rash codeine Allergy (Verified 12/30/17 16:25) Rash erythromycin base Allergy (Verified 12/30/17 16:25) Rash Penicillins Allergy (Verified 12/30/17 16:25) Rash Home Medications: Ambulatory Orders Medication Instructions Recorded Acetaminophen [Tylenol] 650 mg PO 5X/DAY 12/30/17 Aspirin [Adult Low Dose Aspirin EC] 81 mg PO DAILY 12/30/17 Atorvastatin Calcium [Lipitor] 10 mg PO QHS 12/30/17 Celecoxib [Celebrex] 200 mg PO DAILY PRN PRN 12/30/17 Cholecalciferol (Vitamin D3) 1,000 unit PO BID 12/30/17 [Vitamin D3] Colestipol Tablet [Colestid Tablet] 1 gm PO DAILY 12/30/17 Febuxostat [Uloric] 40 mg PO DAILY 12/30/17 Furosemide [Lasix] 40 mg PO DAILY 12/30/17 Insulin Glargine,Hum.rec.anlog 35 unit SQ DAILY 12/30/17 [Lantus] Insulin Lispro [Humalog Kwikpen] 10 - 15 unit SQ 4X/DAY 12/30/17 Insulin Lispro [Humalog] 40 unit SQ DAILY 12/30/17 Levothyroxine [Synthroid] 112 mcg PO DAILY 12/30/17 Metolazone [Zaroxolyn] 5 mg PO QODAY 12/30/17 Multivitamin/Iron/Folic Acid 1 each PO DAILY 12/30/17 [Centrum Adults Tablet] Nitroglycerin 0.4 mg SL PRN PRN 12/30/17 Oxycodone [Oxyir] 5 mg PO Q6H PRN PRN 12/30/17 Potassium Chloride [Klor-Con 10] 10 meq PO QODAY 12/30/17 Ranitidine [Zantac] 150 mg PO DAILY PRN 12/30/17 Sotalol HCl [Betapace AF (Beta 40 mg PO DAILY 12/30/17 Jim)] - Family History Paternal - - The patient's father at the age of 88 with a history of cerebrovascular accident. Patient's mother at age of 85 with a history of coronary artery disease and dementia. Smoking Status: Never smoker Tobacco Use: Non-smoker Review of Systems Constitutional: Denies: Chills, Fever, Weight Change Eyes: Denies: Pain, Vision Change HEENT: Denies: Difficulty Hearing, Difficulty Swallowing, Sinus Congestion Cardiovascular: Denies: Chest Pain, Palpitations Respiratory: Denies: Cough, Shortness of Breath Gastrointestinal: Denies: Diarrhea, Nausea, Vomiting Genitourinary: Denies: Dysuria, Hematuria Endocrine: Denies: Heat/ Cold Intolerance, Polydipsia, Polyuria Hematologic/ Lymphatic: Denies: Easy Bruising, Easy Bleeding - Physical Exam Vital Signs Temp Pulse Resp BP 97.5 F L 75 18 130/62 H 02/17/18 08:23 02/17/18 08:23 02/17/18 08:23 02/17/18 08:23 General: Alert, Oriented x3, Cooperative, No apparent distress, Well developed, Well nourished HEENT: Atraumatic, PERRLA, EOMI, Normocephalic Oral: Moist Mucosa Neck: No JVD Lungs: Normal air movement Abdomen: Non-Distended Extremities: No clubbing, No cyanosis, No edema Skin: No rashes, No breakdown, - - The patient's sacrococcygeal pressure ulceration is now completely healed. It has completely epithelialized. There is no breakdown, erythema, etc. Wound Measurements and Assessment WC - Nurse 1 - General Ulcer Measurement Start: 01/27/18 08:40 Freq: Status: Active Protocol: Activity Type Activity Date Activity User E-Sign Co-Sign Detail Recorded Client Recorded Date Recorded By Document 02/17/18 08:23 DL [id number] 02/17/18 08:30 DL 02/17/18 08:23 Wound Center Nurse 1 [Ulcer Assessment] #1 coccyx -Current Size (cm) - Length 0 -Current Size (cm) - Width 0 -Current Size (cm) - Depth 0 -Total Square Cm 0 -Photo Taken Yes -Exudate Amt None Present (0 %) -Wound Margin Flat & Intact -Granulation Amt Small (1-33%) -Granulation Quality Troup -Necrosis Amt None Present (0 %) -Structure Exposed N/A -Texture (Carol-wound Skin Appearance) Scarring -Moisture (Carol-wound Skin Appearance No Abnormality ) -Color (Carol-wound Skin Appearance) No Abnormality -Temperature (Carol-wound Skin No Abnormality Appearance) (Pt Warm) -Ulcer Cleansing Rinsed/ Irrigated with Saline -Foul Odor after Cleansing No WC - Nurse 2 - General Ulcer CM Notes Start: 01/27/18 08:40 Freq: Status: Active Protocol: Activity Type Activity Date Activity User E-Sign Co-Sign Detail Recorded Client Recorded Date Recorded By Document 02/17/18 08:41 [id number] 02/17/18 08:44 02/17/18 08:41 Wound Center Nurse 2 [Procedure/Treatment] -Time 08:41 -Correct Patient Yes -Correct Side, Site, Position Yes -Correct Procedure Yes -Procedure Performed No -Post Debridement Size (cm) - Length 0 -Post Debridement Size (cm) - Width 0 -Post Debridement Size (cm) - Depth 0 -Total Square Cm 0 -Wound/Ulcer Outcome Healed- Epithelialized -Ulcer Cleansing Not Cleansed -Foul Odor after Cleansing No -Bioengineered Tissue No -Bleeding Controlled with NA [See Physician Procedure note for Specifics] Pain Scale: 0-10 Numeric [Pain] -Is Patient Pain Free? Yes Neurological: Cranial nerves II-XII grossly intact, Neuro grossly intact Psych/Mental Status: Normal Affect, Appropriate, Alert and oriented to time, place, person, mood and affect Debridement Note Post-Debridement Measurements/Treatment WC - Nurse 2 - General Ulcer CM Notes Start: 01/27/18 08:40 Freq: Status: Active Protocol: Activity Type Activity Date Activity User E-Sign Co-Sign Detail Recorded Client Recorded Date Recorded By Document 01/27/18 08:53 [id number] 01/27/18 08:59 Document 02/03/18 08:56 JS [id number] 02/03/18 08:58 JS Document 02/10/18 08:53 [id number] 02/10/18 08:55 Document 02/17/18 08:41 JS [id number] 02/17/18 08:44 JS 01/27/18 02/03/18 02/10/18 08:53 08:56 08:53 Wound Center Nurse 2 #1 coccyx -Time 08:57 08:56 08:54 -Correct Patient Yes Yes Yes -Correct Side, Site, Position Yes Yes Yes -Correct Procedure Yes Yes Yes -Procedure Performed Yes Yes Yes -Type of Procedure Debridement Debridement Debridement -Clinical Debridement Subcutaneous Subcutaneous Subcutaneous -Post Debridement Size (cm) - Length 0.8 1.0 0.5 -Post Debridement Size (cm) - Width 0.2 0.2 0.3 -Post Debridement Size (cm) - Depth 0.1 0.1 0.1 -Total Square Cm 0.16 0.20 0.15 -Wound/Ulcer Outcome Not Healed Not Healed Not Healed -Ulcer Cleansing Not Cleansed Rinsed/ Not Cleansed Irrigated with Saline -Foul Odor after Cleansing No No No -Bioengineered Tissue No No No -Topical Lidocaine (%) 5 4 4 -Lidocaine (ml) 5 5 -Bleeding Controlled with NA NA NA -Treatment Response Procedure Procedure Procedure Tolerated Well Tolerated Well Tolerated Well Pain Scale: 0-10 Numeric Is Patient Pain Free? Yes Yes Yes 02/17/18 08:41 Wound Center Nurse 2 #1 coccyx -Time 08:41 -Correct Patient Yes -Correct Side, Site, Position Yes -Correct Procedure Yes -Procedure Performed No -Type of Procedure -Clinical Debridement -Post Debridement Size (cm) - Length 0 -Post Debridement Size (cm) - Width 0 -Post Debridement Size (cm) - Depth 0 -Total Square Cm 0 -Wound/Ulcer Outcome Healed- Epithelialized -Ulcer Cleansing Not Cleansed -Foul Odor after Cleansing No -Bioengineered Tissue No -Topical Lidocaine (%) -Lidocaine (ml) -Bleeding Controlled with NA -Treatment Response Pain Scale: 0-10 Numeric Is Patient Pain Free? Yes No debridement was completed today Assessment/Plan Active Problems Pressure ulcer of coccygeal region, stage 2 (Chronic) Diabetes mellitus (Chronic) Assessment: This is an 82-year-old female recently hospitalized for left intramedullary rodding secondary to a traumatic fracture. As result, she has developed a stage II pressure ulceration of the coccygeal region. Her other medical problems are documented above. There has been decrease in the size of the coccygeal ulceration, with increasing areas of pink healthy granulation tissue. Good progress toward healing has been noted in recent weeks. As of today, the patient's coccygeal wound is now completely healed. We have obtained recent laboratory results from [facility], dated 2017. Results were as follows: White blood count 8.6, hemoglobin 10.7, hematocrit 32.2, platelets 336,000, glucose 105, sodium 140, potassium 3.2, chloride 97, BUN 54.3, creatinine 1.8. Plan: The patient is now healed her sacrococcygeal pressure ulcer. She is to be discharged, with follow-up henceforth on an as-needed basis. Offloading measures are to be continued. These measures have been discussed with the patient and her daughter, who is at the bedside. The patient has also been advised to remain active, and to elevate her lower extremities as much as possible, even during daytime hours, to avoid issues related to swelling or edema in the lower extremities in the future. The patient has done well, and is now completely healed. The patient is not a smoker. Influenza vaccine was not administered today. Patient weighs 179 pounds. She stands 5 feet 1 inches tall. Her BMI is 33.8, which places her in a class II category. Weight loss has been recommended, and she has been advised to collaborate with her primary care physician in this regard.
== END 2018-02-26 23:59 ==
LOC: WC 08:30
PROVIDERS: Family Provider Family Medicine; PCP Family Medicine; Visit Provider Surgery
DX: L89.152 Pressure ulcer of sacral region, stage 2 (principal); I25.10 Atherosclerotic heart disease of native coronary artery without angina pectoris; I89.0 Lymphedema, not elsewhere classified; E03.9 Hypothyroidism, unspecified; E11.9 Type 2 diabetes mellitus without complications; N28.9 Disorder of kidney and ureter, unspecified; M10.9 Gout, unspecified; E78.5 Hyperlipidemia, unspecified; K21.9 Gastro-esophageal reflux disease without esophagitis; E66.9 Obesity, unspecified; Z88.5 Allergy status to narcotic agent; Z68.34 Body mass index [BMI] 34.0-34.9, adult; Z79.4 Long term (current) use of insulin
CPT/HCPCS: 11042; 99211; G0463

== ENCOUNTER → 2022-11-07 | Outpatient (CLI) | payer MEDICARE, SELFPAY ==
--- NOTE | 2022-11-07 13:13 | MRI_ITS ---
STUDY: MRI LUMBAR SPINE WITHOUT CONTRAST REASON FOR EXAM: Female, 87 years old patient with back pain with radicular symptoms down left leg. Degenerative disk disease (DDD). TECHNIQUE: Standardized fat and water weighted pulse sequences were obtained in the sagittal and axial planes. COMPARISON: Radiographs the lumbar spine dated October 04, 2022. FINDINGS: T12-L1: Normal endplates. Normal disc height, hydration and morphology. Normal bilateral facet joints. Normal central canal and bilateral lateral recesses. Normal bilateral intervertebral neural foramina. There is straightening of the normal lumbar lordosis. There is a scoliosis of lumbar spine with convexity towards the left. Estimated amount of angulation is approximately 18.5 degrees. Normal conus medullaris that terminates at the T12-L1 level. L1-2: Normal endplates. Normal disc height, signal and morphology. Normal bilateral facet joints. Normal central canal and bilateral lateral recesses. Normal bilateral intervertebral neural foramina. L2-3: There is mild annular disk bulge and osteophyte complex. There is mild degenerative arthropathy of the facet joints. Bilateral neuroforamina are narrowed without MR evidence for nerve impingement. There is no appreciable acquired central canal stenosis. L3-4: There is narrowing of the disc. There is a large annular disc bulge and osteophyte complex. There is moderately severe degenerative arthropathy of the facet joints. There is potential impingement of the L4 nerve roots at the lateral recesses. There is severe right-sided neural foraminal narrowing with potential impingement of the right L3 nerve root. The left neural foramen appears patent. There is some abnormal signal of the endplates suggesting possible acute Modic changes at this level. L4-5: There is a broad central disc protrusion. There are severe degenerative arthropathy of the facet joints with moderately severe central acquired canal stenosis and potential impingement of the L5 nerve roots of the lateral recesses as well as potential impingement cauda equina. The neural foramina are severely narrowed with potential impingement of the L4 roots at the neuroforamina. L5-S1: There is narrowing of the disk. There is annular disc bulge and osteophyte complex. There is a moderate left-sided facet joint arthropathy. There is thickening of ligamentum flavum. There is severe left-sided neural foraminal narrowing with potential impingement of the left L5 nerve root of the neural foramen. There is mild central acquired canal stenosis. Normal visualized sacral ala. There is mild paraspinal muscular atrophy. MRI/Spine Lumbar (Routine) IMPRESSION: Moderately severe multilevel degenerative changes of the lumbar spine with neuroforaminal narrowing, central canal stenosis and potential nerve impingement, as described. Electronically Signed: Eli Nieves MD at 7:42 EST ,
== END | disposition home or self-care (01) ==
LOC: MRI 13:13
PROVIDERS: PCP Nurse Practitioner Primary Care; Visit Provider Orthopaedic Surgery
DX: M51.36 Other intervertebral disc degeneration, lumbar region (principal)
CPT/HCPCS: 72148